=== PATIENT | female | born 1945 | race Caucasian/White ===

== ENCOUNTER → 2018-07-26 | Outpatient (CLI) | payer OTHER ==
[~2018-07-26] MED LIST: AMIO200 PO; ATOR40TA; ELIQUIS5 MG; FURO40 PO; Klor-Con 1010 MEQ PO; LEVSOD125; LOSARTAN POTASS50 MG; METO50ER; OXYB5; TRAM50 PO
== END | disposition home or self-care (01) ==
LOC: LAB SHORT 14:01 → PLD 14:01
DX: D22.61 Melanocytic nevi of right upper limb, including shoulder (principal); L57.0 Actinic keratosis
CPT/HCPCS: 88305

== ENCOUNTER → 2019-09-21 | Outpatient (CLI) | payer OTHER ==
[~2019-09-21] MED LIST changes: +GABA300 PO; +LEVSOD100 PO; -LEVSOD125; -METO50ER; +METO50ER PO; +SPIR25 PO; +TORSE20 PO
[2019-09-21 20:41] LABS: Bun/Creatinine Ratio 18.3 (12.0-20.0); Calcium, Blood 8.2 mg/dL (8.5-10.1); Creatinine, Blood 1.53 mg/dL (0.40-1.00); Potassium, Blood 4.1 mmol/L (3.5-5.5)
== END ==
LOC: LAB 18:24 → LAB SHORT 18:24
PROVIDERS: Internal Medicine
DX: I48.20 Chronic atrial fibrillation, unspecified (principal); I13.0 Hypertensive heart and chronic kidney disease with heart failure and stage 1 through stage 4 chronic kidney disease, or unspecified chronic kidney disease; N18.3 Chronic kidney disease, stage 3 (moderate); I50.33 Acute on chronic diastolic (congestive) heart failure; I50.810 Right heart failure, unspecified; I08.2 Rheumatic disorders of both aortic and tricuspid valves; G89.29 Other chronic pain
CPT/HCPCS: 80048

== ENCOUNTER → 2019-09-26 | Outpatient (CLI) | payer OTHER ==
[2019-09-26 16:02] LABS: Hematocrit 28.8 % (33.0-51.0); Hemoglobin 8.9 g/dL (11.5-16.0); Mean Corpuscular HGB 31.3 pg (26.0-34.0); Mean Corpuscular HGB Conc 30.9 g/dL (31.5-36.5); Mean Corpuscular Volume 101 fL (80-100); Mean Platelet Volume 9.8 fL (9.1-12.4); Platelet Count 277 K/mm3 (150-400); RDW Coefficient Variation 18.1 % (11.7-14.2); RDW Standard Deviation 66.9 fL (35.1-46.3); Red Blood Cell Count 2.84 M/mm3 (3.80-5.20); White Blood Cell Count 6.33 K/mm3 (4.00-11.30)
[2019-09-26 16:33] LABS: International Normalized Ratio No Calc
[2019-09-26 16:47] LABS: Prothrombin Time Results >90.0 Sec (9.7-11.5)
== END | disposition home or self-care (01) ==
LOC: LAB SHORT 14:05 → LAB 14:05
PROVIDERS: Nurse Practitioner Acute Care
DX: Z79.01 Long term (current) use of anticoagulants (principal); Z51.81 Encounter for therapeutic drug level monitoring; I07.2 Rheumatic tricuspid stenosis and insufficiency
CPT/HCPCS: 85027; 85610

== ENCOUNTER → 2019-10-05 | Outpatient (CLI) | payer OTHER ==
[2019-10-05 18:50] LABS: Hematocrit 29.2 % (33.0-51.0); Hemoglobin 9.1 g/dL (11.5-16.0); Mean Corpuscular HGB 31.2 pg (26.0-34.0); Mean Corpuscular HGB Conc 31.2 g/dL (31.5-36.5); Mean Corpuscular Volume 100 fL (80-100); Mean Platelet Volume 9.5 fL (9.1-12.4); Platelet Count 254 K/mm3 (150-400); RDW Coefficient Variation 17.5 % (11.7-14.2); RDW Standard Deviation 64.5 fL (35.1-46.3); Red Blood Cell Count 2.92 M/mm3 (3.80-5.20); White Blood Cell Count 7.34 K/mm3 (4.00-11.30)
== END | disposition home or self-care (01) ==
LOC: LAB 13:25 → LAB SHORT 13:25
PROVIDERS: Internal Medicine
DX: I48.20 Chronic atrial fibrillation, unspecified (principal); I50.23 Acute on chronic systolic (congestive) heart failure; I08.2 Rheumatic disorders of both aortic and tricuspid valves
CPT/HCPCS: 85027

== ENCOUNTER 2019-12-05 18:48 | Emergency (ER) | payer OTHER ==
[~2019-12-05] VITALS: Ht 167.6 cm; Wt 103.4 kg
[2019-12-05] MEDS ORDERED: POTCIT10 PO (19:57)
[2019-12-05] MEDS ORDERED: ATOR20 PO (19:57)
[2019-12-05] MEDS ORDERED: WARF2.5 PO (19:57)
[2019-12-05] MEDS ORDERED: TORS10 PO (19:57)
[2019-12-05 21:57] LABS: International Normalized Ratio No Calc; Prothrombin Time Results >90.0 Sec (9.7-11.5)
[2019-12-05] MEDS ORDERED: PHYTONADIONE5 MG PO (22:53)
== END 2019-12-05 21:45 | disposition home or self-care (01) ==
LOC: ER 18:48
PROVIDERS: Physician Assistant
DX: R04.0 Epistaxis (principal); I48.91 Unspecified atrial fibrillation; I10 Essential (primary) hypertension; E03.9 Hypothyroidism, unspecified; Z88.2 Allergy status to sulfonamides; Z79.01 Long term (current) use of anticoagulants; Z79.899 Other long term (current) drug therapy
CPT/HCPCS: 30901; 36415; 85610; 99283-25

== ENCOUNTER → 2020-03-25 | Outpatient (CLI) | payer OTHER ==
[~2020-03-25] MED LIST changes: +ATOR20 PO; +PHYTONADIONE5 MG PO; +POTCIT10 PO; +TORS10 PO; +WARF2.5 PO
[2020-03-25 19:40] LABS: Uric Acid, Blood 12.5 mg/dL (2.6-6.0)
[2020-03-25 19:42] LABS: Albumin, Blood 3.5 g/dL (3.4-5.0); Anion Gap 12 mmol/L (6-16); Blood Urea Nitrogen 54 mg/dL (8-24); Bun/Creatinine Ratio 20.5 (12.0-20.0); CO2, Blood 24 mmol/L (21-32); Calcium, Blood 10.2 mg/dL (8.5-10.1); Chloride, Blood 93 mmol/L (98-108); Creatinine, Blood 2.63 mg/dL (0.40-1.00); Glomerular Filtration Rate 19 (60-); Glucose, Blood 94 mg/dL (70-99); Phosphorus, Blood 5.1 mg/dL (2.5-4.9); Potassium, Blood 4.2 mmol/L (3.5-5.5); Sodium, Blood 129 mmol/L (136-145)
== END | disposition home or self-care (01) ==
LOC: PLD 18:33
PROVIDERS: Internal Medicine
DX: I50.32 Chronic diastolic (congestive) heart failure (principal); M10.9 Gout, unspecified
CPT/HCPCS: 80069; 83880; 84550

== ENCOUNTER 2022-08-12 16:09 | Inpatient (IN) | payer OTHER ==
[~2022-08-12] VITALS: Ht 167.6 cm; Wt 127.2 kg
[2022-08-12 16:50] LABS: BASOPHILS ABSOLUTE AUTO 0.07 K/mm3 (0.00-0.23); BASOPHILS PERCENT AUTO 1 % (0-2); EOSINOPHILS ABSOLUTE AUTO 0.21 K/mm3 (0.00-0.68); EOSINOPHILS PERCENT AUTO 3 % (0-6); Hematocrit 24.5 % (33.0-51.0); Hemoglobin 7.6 g/dL (11.5-16.0); IMMATURE GRAN ABSOLUTE AUTO 0.03 K/mm3 (0.00-0.10); IMMATURE GRAN PERCENT AUTO 0 % (0-1); LYMPHOCYTES ABSOLUTE AUTO 0.73 K/mm3 (0.84-5.20); LYMPHOCYTES PERCENT AUTO 10 % (21-46); MONOCYTES ABSOLUTE AUTO 0.55 K/mm3 (0.16-1.47); MONOCYTES PERCENT AUTO 8 % (4-13); Mean Corpuscular HGB 34.7 pg (26.0-34.0); Mean Corpuscular Volume 112 fL (80-100); Mean Platelet Volume 9.8 fL (9.1-12.4); NEUTROPHILS ABSOLUTE AUTO 5.46 K/mm3 (1.96-9.15); NEUTROPHILS PERCENT AUTO 77 % (41-73); NRBC ABSOLUTE 0.02 K/mm3 (0.00-0.02); NRBC Auto 0.3 /100 WBC (0.0-0.2); Platelet Count 214 K/mm3 (150-400); RDW Coefficient Variation 14.8 % (11.7-14.2); RDW Standard Deviation 59.5 fL (35.1-46.3); Red Blood Cell Count 2.19 M/mm3 (3.80-5.20); White Blood Cell Count 7.05 K/mm3 (4.00-11.30)
[2022-08-12 17:13] LABS: Albumin, Blood 3.3 g/dL (3.4-5.0); Albumin/Globulin Ratio 0.9 (0.8-1.8); Bilirubin, Total 0.5 mg/dL (0.1-1.0); Bun/Creatinine Ratio 21.8 (12.0-20.0); Calcium, Blood 9.7 mg/dL (8.5-10.1); Creatinine, Blood 2.94 mg/dL (0.40-1.00); Globulin, Blood 3.8 g/dL (2.2-4.0); Potassium, Blood 4.1 mmol/L (3.5-5.5); Total Protein, Blood 7.1 g/dL (6.4-8.2)
[2022-08-12] MEDS ORDERED: NEURONTIN300 MG PO (19:43)
[2022-08-12] MEDS ORDERED: POTCHL20ER PO (19:43)
[2022-08-12] MEDS ORDERED: ELIQUIS5 M3 PO (19:43)
[2022-08-12] MEDS ORDERED: TRAM50 PO (19:44)
[2022-08-12] MEDS ORDERED: ALLOPURINOL100 M1 PO (19:44)
[2022-08-12] MEDS ORDERED: EUTHYROX150 MC1 PO (19:44)
[2022-08-12] MEDS ORDERED: OMEP20ER PO (19:45)
[2022-08-12] MEDS ORDERED: SPIRONOLACTONE25 MG PO (19:45)
[2022-08-12] MEDS ORDERED: METOPROLOL SUCC25 MG PO (19:45)
[2022-08-12] MEDS ORDERED: IRON18 MG PO (19:46)
[2022-08-12] MEDS ORDERED: Vitamin B-Comp1 EACH PO (19:46)
[2022-08-12] MEDS ORDERED: Vitamin C100 M1 PO (19:46)
[2022-08-12] MEDS ORDERED: Calcium Carbon500 MG PO (19:47)
[2022-08-12 23:28] LABS: Hemoglobin 8.3 g/dL (11.5-16.0); Mean Corpuscular HGB Conc 30.7 g/dL (31.5-36.5); Mean Corpuscular Volume 111 fL (80-100); Mean Platelet Volume 9.9 fL (9.1-12.4); NRBC ABSOLUTE 0.02 K/mm3 (0.00-0.02); NRBC Auto 0.2 /100 WBC (0.0-0.2); Platelet Count 247 K/mm3 (150-400); RDW Coefficient Variation 14.9 % (11.7-14.2); RDW Standard Deviation 59.7 fL (35.1-46.3); Red Blood Cell Count 2.44 M/mm3 (3.80-5.20); White Blood Cell Count 8.74 K/mm3 (4.00-11.30)
[2022-08-13] VITALS (7 sets, daily range): BP systolic 90–120; BP diastolic 51–81
[2022-08-13 06:00] LABS: BASOPHILS ABSOLUTE AUTO 0.04 K/mm3 (0.00-0.23); BASOPHILS PERCENT AUTO 1 % (0-2); EOSINOPHILS ABSOLUTE AUTO 0.23 K/mm3 (0.00-0.68); EOSINOPHILS PERCENT AUTO 3 % (0-6); Hematocrit 24.5 % (33.0-51.0); Hemoglobin 7.4 g/dL (11.5-16.0); IMMATURE GRAN ABSOLUTE AUTO 0.03 K/mm3 (0.00-0.10); IMMATURE GRAN PERCENT AUTO 0 % (0-1); LYMPHOCYTES PERCENT AUTO 11 % (21-46); MONOCYTES ABSOLUTE AUTO 0.49 K/mm3 (0.16-1.47); MONOCYTES PERCENT AUTO 7 % (4-13); Mean Corpuscular HGB 33.9 pg (26.0-34.0); Mean Corpuscular HGB Conc 30.2 g/dL (31.5-36.5); Mean Corpuscular Volume 112 fL (80-100); Mean Platelet Volume 9.9 fL (9.1-12.4); NEUTROPHILS ABSOLUTE AUTO 5.51 K/mm3 (1.96-9.15); NEUTROPHILS PERCENT AUTO 78 % (41-73); NRBC ABSOLUTE 0.02 K/mm3 (0.00-0.02); NRBC Auto 0.3 /100 WBC (0.0-0.2); Platelet Count 199 K/mm3 (150-400); RDW Standard Deviation 60.5 fL (35.1-46.3); Red Blood Cell Count 2.18 M/mm3 (3.80-5.20)
[2022-08-13 06:19] LABS: Albumin, Blood 3.1 g/dL (3.4-5.0); Albumin/Globulin Ratio 0.9 (0.8-1.8); Bilirubin, Total 0.7 mg/dL (0.1-1.0); Bun/Creatinine Ratio 22.4 (12.0-20.0); Calcium, Blood 9.6 mg/dL (8.5-10.1); Creatinine, Blood 2.94 mg/dL (0.40-1.00); Globulin, Blood 3.4 g/dL (2.2-4.0); Potassium, Blood 4.2 mmol/L (3.5-5.5); Total Protein, Blood 6.5 g/dL (6.4-8.2)
--- NOTE | 2022-08-13 14:47 | NUR ---
TRANSFER PT TRANSFERED TO DAY SURGERY VIA [facility]. NPO. CONTINUE POC.
--- NOTE | 2022-08-13 14:59 | NUR ---
08/13/22 1459 Kristopher Carter History, Chart, Medications and Allergies reviewed before start of procedure.MONITOR INTACT WITH CONTINUOUS PULSE OXIMETRY, CONTINUOUS END TITAL CO2, AND INTERMITTENT BLOOD PRESSURE.EKG MONITORED DURING PROCEDURE.O2 VIA N/C INTACT THROUGHOUT SEDATION/PROCEDURE. Bite Block Placed,REMOVED AFTER PROCEDURE.See Anesthesia record/DR RICHARDS.
--- NOTE | 2022-08-13 16:15 | NUR ---
PT AWAKE.A/O. PT VSS. REPORT GIVEN TO MEDICAL FLOOR NURSE.J.L. NO ACUTE CHANGES WHILE IN THIS RN'S CARE.
--- NOTE | 2022-08-13 16:16 | NUR ---
History, Chart, Medications and Allergies reviewed before start of procedure.Lungs clear T/O to Auscultation. Patient confirms NPO status and agrees with scheduled surgery. Pre-Op teaching done. Pt verbalizes understanding.
--- NOTE | 2022-08-13 16:26 | NUR ---
POST EGD BEDSIDE REPORT RECEIVED ROM NURSE. PT AWAKE ALERT AND ABLE TO ROLL HERSELF INTO HER BED FROM THE [facility]. VSS. RESTING QUIETLY. CONTINUE POC.
--- NOTE | 2022-08-13 18:42 | NUR ---
LAB CALLED DR KNOTT TO REPORT HEMAGLOBIN 6.9. ORDER RECEIVED. CONTINUE POC.
--- NOTE | 2022-08-13 18:43 | NUR ---
POST IOP PT UP IN ROOM AD ANDREA. GAIT STEADY. FAMILY AT BEDSIDE. SHE HAS REFUSED FURTHER POST OP VS. TOELRATING CLEAR LIQUIDS. NO SWALLOW ISSUES NOTED. CONTINUE POC.
[2022-08-14 00:59] VITALS: BP 113/69
[2022-08-14 01:14] LABS: BASOPHILS ABSOLUTE AUTO 0.05 K/mm3 (0.00-0.23); BASOPHILS PERCENT AUTO 1 % (0-2); EOSINOPHILS ABSOLUTE AUTO 0.28 K/mm3 (0.00-0.68); EOSINOPHILS PERCENT AUTO 4 % (0-6); Hematocrit 26.4 % (33.0-51.0); Hemoglobin 8.3 g/dL (11.5-16.0); IMMATURE GRAN ABSOLUTE AUTO 0.03 K/mm3 (0.00-0.10); IMMATURE GRAN PERCENT AUTO 0 % (0-1); LYMPHOCYTES ABSOLUTE AUTO 0.73 K/mm3 (0.84-5.20); LYMPHOCYTES PERCENT AUTO 11 % (21-46); MONOCYTES ABSOLUTE AUTO 0.52 K/mm3 (0.16-1.47); MONOCYTES PERCENT AUTO 8 % (4-13); Mean Corpuscular HGB Conc 31.4 g/dL (31.5-36.5); Mean Corpuscular Volume 108 fL (80-100); Mean Platelet Volume 9.6 fL (9.1-12.4); NEUTROPHILS ABSOLUTE AUTO 5.25 K/mm3 (1.96-9.15); NEUTROPHILS PERCENT AUTO 77 % (41-73); NRBC ABSOLUTE 0.02 K/mm3 (0.00-0.02); NRBC Auto 0.3 /100 WBC (0.0-0.2); Platelet Count 214 K/mm3 (150-400); RDW Coefficient Variation 16.6 % (11.7-14.2); RDW Standard Deviation 64.3 fL (35.1-46.3); Red Blood Cell Count 2.44 M/mm3 (3.80-5.20); White Blood Cell Count 6.86 K/mm3 (4.00-11.30)
[2022-08-14 01:33] LABS: Albumin, Blood 3.4 g/dL (3.4-5.0); Albumin/Globulin Ratio 0.9 (0.8-1.8); Bilirubin, Total 1.7 mg/dL (0.1-1.0); Bun/Creatinine Ratio 20.7 (12.0-20.0); Calcium, Blood 9.5 mg/dL (8.5-10.1); Creatinine, Blood 2.94 mg/dL (0.40-1.00); Globulin, Blood 3.6 g/dL (2.2-4.0); Potassium, Blood 4.4 mmol/L (3.5-5.5)
[2022-08-14 07:39] VITALS: BP 102/57
[2022-08-14 15:13] VITALS: BP 121/54
--- NOTE | 2022-08-14 17:31 | NUR ---
SHIFT SUMMARY: PT A&O X4. PT VERY PLEASANT AND COOPERATIVE WITH ALL CARE. PT INDEPENDENT IN ROOM. PT LOWER LEGS EXTREMELY SWOLLEN. PT RECEIVING 6 ML LASIX BID. BLADDER SCAN THIS MORNING SHOWED 30CC IN BLADDER. PT STATES SHE IS URINATING FINE. DR. KNOTT PUT IN D/C ORDERS FOR PT TO DISCHARGE TODAY. HELD DISCHARGE DUE TO FAMILY CONCERNS FOR PT. DR. SORIANO CONSULTED TO GIVE SECOND OPINION. PROVIDER ARRIVED FOR CONSULT AROUND 1630 AND TOLD PT HE WOULD BE BACK "IN A COUPLE HOURS" (PER PT). FAMILY WOULD LIKE TO BE AROUND WHEN DR. SORIANO RETURNS. FAMILY AND PT ALSO NOT THRILLED WITH MEDICATION CHANGES. DISCHARGE PAPERS IN PT CHART. PT HGB 7.9 THIS AM. PT REMAINS ON CLEAR LIQUID DIET. BUN 61 CREAT 2.94. CALL LIGHT IN REACH. BED IN LOWEST POSITION. WILL CONTINUE TO MONITOR.
[2022-08-14 19:12] VITALS: BP 116/72
[2022-08-15] VITALS (8 sets, daily range): BP systolic 100–127; BP diastolic 49–81
--- NOTE | 2022-08-15 04:07 | NUR ---
SHIFT SUMMARY PT SITTING UP IN BED DURING BEDSIDE ROUNDS AT BEGIN OF SHIFT- PT'S DAUGHTER AND SON AT BEDSIDE AND PARTICIPATED IN REPORT- REPORT FROM JUAN THAT DR. WIGGINS WILL RETURN TONIGHT AND FILL IN THE CHILDREN OF THE CHANGES TO TREATMENT- NOTIFIED PT AND FAMILY THAT DR. WIGGINS LEFT FACILITY- FILLED PT AND FAMILY OF DIURETIC CHANGES, PT AND FAMILY ARE CONCERNED ABOUT POSSIBLE DISHARGE- CALL TO DR. WIGGINS RE: ORDER CLAFICATION- PROCRIT ORDERED IV - NOTE IN THE ORDER DESCRIPTION TO GIVE SQ- CALL PHARMACY SPOKE TO PHARMACIST AND RECOMENDATION TO CALL HIM TO CLARIFY THE ORDER- PT SLEPT T/O NIGHT - PT TOLERATED WELL, BED LOW POSITION, CALL LIGHT WTIHIN REACH
[2022-08-15 07:11] LABS: Albumin, Blood 3.3 g/dL (3.4-5.0); Anion Gap 11 mmol/L (6-16); Blood Urea Nitrogen 51 mg/dL (8-24); Bun/Creatinine Ratio 19.3 (12.0-20.0); CO2, Blood 25 mmol/L (21-32); Calcium, Blood 9.2 mg/dL (8.5-10.1); Chloride, Blood 102 mmol/L (98-108); Creatinine, Blood 2.64 mg/dL (0.40-1.00); Glomerular Filtration Rate 18 (60-); Glucose, Blood 109 mg/dL (70-99); Phosphorus, Blood 3.7 mg/dL (2.5-4.9); Potassium, Blood 3.8 mmol/L (3.5-5.5); Sodium, Blood 138 mmol/L (136-145)
--- NOTE | 2022-08-15 19:24 | NUR ---
PT QUITE PLEASANT TODAY. LUNGS CLEAR, RESP EASY, ON R/A. H/R REG, NO MURMUR NOTED. NO TELE. VSS STABLE, BUT SOME SOFT. DISCUSSED WITH DR KNOTT THIS AM. HE HAD ME HOLD ALDACTONE THIS AM. PT HAD MULT FAMILY IN TO SEE TODAY. PT STATES NO DARK TARRY OR BLOODY STOOL NOTED TODAY. BED IN LOW POSITIOIN, CALL LITE IN REACH. CALLS APPROP
[2022-08-16 04:02] VITALS: BP 106/64
--- NOTE | 2022-08-16 05:27 | NUR ---
SHIFT SUMMERY. pT RESTED VERY WELL THIS NIGHT. PT STATED SHE HAD BEEN SLEEPDING VERY DEEPLY AND AWOKE DUE TO NEEDING TO VOID. PT SAID SHE FELT VERY REFRESHED AND WAS THINKING ABOUT POSS DC TO HOME BEING OK, EARLYER PT DID NOT WANT TO DC TO HOME BUT FOUND OUT DAUGHTER WOULD BE HERE TODAY. CALL LIGHT IN REACH PT UP AT ANDREA, STEADY ON FEET.
[2022-08-16 05:59] LABS: BASOPHILS ABSOLUTE AUTO 0.04 K/mm3 (0.00-0.23); BASOPHILS PERCENT AUTO 1 % (0-2); EOSINOPHILS ABSOLUTE AUTO 0.21 K/mm3 (0.00-0.68); EOSINOPHILS PERCENT AUTO 3 % (0-6); Hematocrit 26.2 % (33.0-51.0); Hemoglobin 8.2 g/dL (11.5-16.0); IMMATURE GRAN ABSOLUTE AUTO 0.04 K/mm3 (0.00-0.10); IMMATURE GRAN PERCENT AUTO 1 % (0-1); LYMPHOCYTES ABSOLUTE AUTO 0.83 K/mm3 (0.84-5.20); LYMPHOCYTES PERCENT AUTO 11 % (21-46); MONOCYTES ABSOLUTE AUTO 0.68 K/mm3 (0.16-1.47); MONOCYTES PERCENT AUTO 9 % (4-13); Mean Corpuscular HGB 34.3 pg (26.0-34.0); Mean Corpuscular HGB Conc 31.3 g/dL (31.5-36.5); Mean Corpuscular Volume 110 fL (80-100); Mean Platelet Volume 9.8 fL (9.1-12.4); NEUTROPHILS ABSOLUTE AUTO 5.53 K/mm3 (1.96-9.15); NEUTROPHILS PERCENT AUTO 76 % (41-73); Platelet Count 187 K/mm3 (150-400); RDW Standard Deviation 64.1 fL (35.1-46.3); Red Blood Cell Count 2.39 M/mm3 (3.80-5.20); White Blood Cell Count 7.33 K/mm3 (4.00-11.30)
[2022-08-16 06:18] LABS: Bun/Creatinine Ratio 17.4 (12.0-20.0); Calcium, Blood 9.3 mg/dL (8.5-10.1); Creatinine, Blood 2.64 mg/dL (0.40-1.00); Percent Saturation 4.9 % (15.0-50.0); Potassium, Blood 3.7 mmol/L (3.5-5.5)
[2022-08-16 07:55] VITALS: BP 97/67
[2022-08-16 08:59] VITALS: BP 115/56
[2022-08-16 09:01] VITALS: BP 108/59
[2022-08-16 17:56] VITALS: BP 120/70
--- NOTE | 2022-08-16 18:59 | NUR ---
SHIFT SUMMARY PT. INDEPENDENT IN ROOM. PLEASANT AND COMPLIANT WITH CARE. STRICT I&O'S PER DOCTOR. FAMILY IN AT BEDSIDE MOST OF AFTERNOON. NO ACUTE CHANGE.
--- NOTE | 2022-08-16 19:34 | NUR ---
AGREE WITH RN NOTES.
--- NOTE | 2022-08-16 19:34 | NUR ---
PT PLEASANT TODAY. SHE STATES MIGHT BE FEELING LIKE GETTING A COLD. NO OTHER ACUTE CHANGES TODAY
[2022-08-17 05:31] VITALS: BP 112/66
[2022-08-17 06:30] LABS: BASOPHILS ABSOLUTE AUTO 0.04 K/mm3 (0.00-0.23); BASOPHILS PERCENT AUTO 0 % (0-2); EOSINOPHILS PERCENT AUTO 2 % (0-6); Hematocrit 27.9 % (33.0-51.0); Hemoglobin 8.7 g/dL (11.5-16.0); IMMATURE GRAN ABSOLUTE AUTO 0.06 K/mm3 (0.00-0.10); IMMATURE GRAN PERCENT AUTO 1 % (0-1); LYMPHOCYTES ABSOLUTE AUTO 0.82 K/mm3 (0.84-5.20); LYMPHOCYTES PERCENT AUTO 9 % (21-46); MONOCYTES ABSOLUTE AUTO 0.86 K/mm3 (0.16-1.47); MONOCYTES PERCENT AUTO 9 % (4-13); Mean Corpuscular HGB 33.9 pg (26.0-34.0); Mean Corpuscular HGB Conc 31.2 g/dL (31.5-36.5); Mean Corpuscular Volume 109 fL (80-100); NEUTROPHILS ABSOLUTE AUTO 7.51 K/mm3 (1.96-9.15); NEUTROPHILS PERCENT AUTO 79 % (41-73); NRBC ABSOLUTE 0.02 K/mm3 (0.00-0.02); NRBC Auto 0.2 /100 WBC (0.0-0.2); Platelet Count 210 K/mm3 (150-400); RDW Coefficient Variation 15.4 % (11.7-14.2); RDW Standard Deviation 61.1 fL (35.1-46.3); Red Blood Cell Count 2.57 M/mm3 (3.80-5.20); White Blood Cell Count 9.49 K/mm3 (4.00-11.30)
--- NOTE | 2022-08-17 06:37 | NUR ---
SHIFT SUMMARY PT SITTING UP IN BED DURING BEDSIDE REPORT, PT DENIES PAIN, SPOKE WITH PT RE: NOT HAVING A BM FOR 5 DAYS, PT DENIED ABDOMEN PAIN- PT CONCERNED AND REQUESTED BOWEL MEDICATION, CALL TO DR. PAYNE - ORDER FOR MIRALAX X 1- PT DRANK WITHOUT PROBLEMS, PT SLEPT T/O NIGHT WITHOUT COMPLAINTS, PT TOOK MORNING PROTONIX AND SAT UP TO SIDE OF BED READING, STRICT I/O RECORDED, BED LOW POSITION, CALL LIGHT WITHIN REACH
[2022-08-17 06:50] LABS: Bun/Creatinine Ratio 17.9 (12.0-20.0); Calcium, Blood 9.8 mg/dL (8.5-10.1); Creatinine, Blood 2.62 mg/dL (0.40-1.00)
[2022-08-17 07:31] VITALS: BP 113/51
--- NOTE | 2022-08-17 13:07 | NUR ---
PATIENT HAVING INCREASED SHORTNESS OF BREATH AND WHEEZING. DR EVANS NOTIFIED AND CHEST X-RAY ORDERED. SATS REMAIN >90% ON RA.
[2022-08-17 14:48] VITALS: BP 111/58
--- NOTE | 2022-08-17 17:34 | NUR ---
END OF SHIFT SUMMARY PT A/O X4, EDGAR, AND COOPERATIVE WITH CARE. PT HAD AN EPISODE OF INCREASED SOB AND COUGHING. SATS MONITORED AND >92%. NOTIFIED CORNELL WHO ORDERED CHEST XRAY. PT HGB INCREASED TO 8.7, GAVE IV IRON DURING SHIFT. PT COMPLAINED OF NOT HAVING A BOWEL MOVEMENT. GAVE PRUNE JUICE WHICH HELPED PT PRODUCE A BOWEL MOVEMENT. STRICT I&O'S RECORDED, ROOM AIR, NO TELE. USES CALL LIGHT APPROPRIATLEY AND BED KEPT IN LOWEST POSITION. DAUGHTER AT BEDSIDE TODAY.
[2022-08-17 19:41] VITALS: BP 73/50
[2022-08-17 21:31] VITALS: BP 109/62
[2022-08-18 04:46] VITALS: BP 121/76
--- NOTE | 2022-08-18 05:27 | NUR ---
SHIFT SUMMARY PT SITTING UP TO SIDE OF BED DURING BEDSIDE REPORT, DAUGHTER IN ROOM- PT TOOK SCHEDULED GABAPENTIN AT HS, PT REPORTED FEELING IF SHE IS STARTING TO GET A COLD, PT LUNGS SOUNDS COARSE, SATS WNL- PT AMBULATED TO BATHROOM WITHOUT PROBLEMS, PT ON STRICT I/O- [address] MOSES - PT REQUESTED COUGH SYRUP AND DROP FOR COUGH AND SORE THROAT BED LOW POSITION, CALL LIGHT WITHIN REACH
[2022-08-18 05:37] LABS: Hematocrit 28.1 % (33.0-51.0); Hemoglobin 9.1 g/dL (11.5-16.0)
[2022-08-18 06:09] LABS: Bun/Creatinine Ratio 17.6 (12.0-20.0); Calcium, Blood 9.1 mg/dL (8.5-10.1); Creatinine, Blood 2.73 mg/dL (0.40-1.00)
[2022-08-18 07:23] VITALS: BP 123/76
[2022-08-18 14:44] VITALS: BP 121/74
[2022-08-18 15:07] LABS: A/G RATIO 1.2 (0.7-1.7); ALBUMIN 3.3 g/dL (2.9-4.4); ALPHA-1-GLOBULIN 0.3 g/dL (0.0-0.4); ALPHA-2-GLOBULIN 0.7 g/dL (0.4-1.0); GAMMA GLOBULIN 0.8 g/dL (0.4-1.8); GLOBULIN, TOTAL 2.8 g/dL (2.2-3.9); M-SPIKE Not Observed g/dL (Not Observed); PROTEIN, TOTAL, SERUM 6.1 g/dL (6.0-8.5)
[2022-08-18] MEDS ORDERED: PANT40 PO (16:08)
[2022-08-18] MEDS ORDERED: VISBIOME 112.51 EACH PO (16:08)
[2022-08-18] MEDS ORDERED: AMOCLA500 PO (16:09)
--- NOTE | 2022-08-18 16:46 | NUR ---
END OF SHIFT SUMMARY PT A/O X4, CALM AND COOPERATIVE WITH CARE. PT CALM AND COOPERATIVE WITH CARE, GETS INCREASED ANXIETY WHEN COUGHING. TREATED COUGH PER MAR WITH ROBITUSSIN.DR YADAV ORDERED ABX TO BE STARTED TONIGHT. PT WAS TO BE DISCHARGED BUT FAMILY DID NOT THINK WAS A GOOD IDEA PT LIVES ALONE. PT APPEALED DISCHARGE. DR YAADV REQUESTED PT BRING IN CPAP FROM HOME FOR USE. PT HAS NOT BEEN WEARING CPAP WHILE IN THE HOSPITAL BECAUSE SHE DOES NOT LIKE THE HOSPITALS AND DID NOT HAVE HER OWN. STRICT I&O RECORDED. BED IN LOWEST POSITION, PT USES CALL LIGHT WHEN NEEDED.
[2022-08-18 19:59] VITALS: BP 101/68
[2022-08-19 04:57] VITALS: BP 108/61
[2022-08-19 07:17] VITALS: BP 108/65
[2022-08-19 15:48] VITALS: BP 107/71
--- NOTE | 2022-08-19 16:52 | NUR ---
SHIFT SUMMARY PATIENT DENIES PAIN, NAUSEA, AND SHORTNESS OF BREATH. PATIENT A&O X4. PATIENT IS PLEASANT AND COOPERATIVE WITH CARE. PATIENT IS IND IN THE ROOM. SEE RELISH BLENDER NOTES FOR UPDATES. NO IV ACCESS. PATIENT EATING AND DRINKING WELL. PATIENT HAD FAMILY VISIT THROUGHOUT SHIFT.
[2022-08-19 19:23] VITALS: BP 94/51
[2022-08-20 02:35] VITALS: BP 117/82
--- NOTE | 2022-08-20 06:37 | NUR ---
NO EVENTS DURING SHIFT. PT AO, VSS, PLEASANT, CPAP IN PLACE FOR ENTIRE SHIFT. PLAN IS TO DC HOME TODAY. NO PRN MEDS GIVEN. NO SIGNIFICANT CHANGES NOTED.
[2022-08-20 07:12] VITALS: BP 121/83
[2022-08-20] MEDS ORDERED: GUAI600T33 PO (11:07)
[2022-08-20] MEDS ORDERED: METO5 PO (11:09)
--- NOTE | 2022-08-20 15:35 | NUR ---
PT DISCHARGE AT 1210 WITH DAUGHTER TO TRANSPORT. ALL PERSONAL BELINGINGS ARE WITH PT. PACKET WAS REVIEWED AND SENT WITH PT. NO DISTRESS NOTED. PT AOX4 AND COOPERATIVE OF ALL CARE THOUGHOUT SHIFT.
== END 2022-08-20 12:21 | disposition home or self-care (01) | DRG 377 ==
LOC: ER 16:09 → MEDS 16:10 → ENPENDDIS 08-14 09:21 → MEDS 08-16 15:53
PROVIDERS: Family Medicine; Hospitalist; Internal Medicine; Physician Assistant; Student in an Organized Health Care Education/Training Program; ADMIT Student in an Organized Health Care Education/Training Program
PROC: 0D568ZZ Destruction of Stomach, Via Natural or Artificial Opening Endoscopic (ICD-10-PCS; 2022-08-13)
PROC: 30233N1 Transfusion of Nonautologous Red Blood Cells into Peripheral Vein, Percutaneous Approach (ICD-10-PCS; 2022-08-13)
PROC: 0W3P8ZZ Control Bleeding in Gastrointestinal Tract, Via Natural or Artificial Opening Endoscopic (ICD-10-PCS; principal; 2022-08-13 15:30)
PROC: 5A09357 Assistance with Respiratory Ventilation, Less than 24 Consecutive Hours, Continuous Positive Airway Pressure (ICD-10-PCS; 2022-08-16)
DX: K31.811 Angiodysplasia of stomach and duodenum with bleeding (principal); I50.33 Acute on chronic diastolic (congestive) heart failure; J18.9 Pneumonia, unspecified organism; D62 Acute posthemorrhagic anemia; E87.1 Hypo-osmolality and hyponatremia; J98.11 Atelectasis; I48.20 Chronic atrial fibrillation, unspecified; N18.4 Chronic kidney disease, stage 4 (severe); Z68.42 Body mass index [BMI] 45.0-49.9, adult; I13.0 Hypertensive heart and chronic kidney disease with heart failure and stage 1 through stage 4 chronic kidney disease, or unspecified chronic kidney disease; N17.9 Acute kidney failure, unspecified; D63.1 Anemia in chronic kidney disease; I07.1 Rheumatic tricuspid insufficiency; G47.33 Obstructive sleep apnea (adult) (pediatric); R79.89 Other specified abnormal findings of blood chemistry; G89.4 Chronic pain syndrome; M10.9 Gout, unspecified; D50.9 Iron deficiency anemia, unspecified; Q27.33 Arteriovenous malformation of digestive system vessel; E87.6 Hypokalemia; E03.9 Hypothyroidism, unspecified; R63.5 Abnormal weight gain; F41.9 Anxiety disorder, unspecified; K29.41 Chronic atrophic gastritis with bleeding; I27.20 Pulmonary hypertension, unspecified; Z88.2 Allergy status to sulfonamides; Z79.02 Long term (current) use of antithrombotics/antiplatelets; Z99.89 Dependence on other enabling machines and devices; Z79.899 Other long term (current) drug therapy; Z79.01 Long term (current) use of anticoagulants; Z95.2 Presence of prosthetic heart valve; Z79.891 Long term (current) use of opiate analgesic; Z98.890 Other specified postprocedural states; Z90.710 Acquired absence of both cervix and uterus
CPT/HCPCS: 36415; 71045; 71046; 80048; 80053; 80069; 82272; 82533; 82607; 82728; 82746; 83540; 83550; 83880; 84145; 84165; 84484; 85014; 85018; 85025; 85027; 86850; 86900; 86901; 86923; 93005; 93010; 93306; 94660; 94762; 96372; 96374; 96375; 96376; 97161; 97530; 99285-25; A9270; C9113; G0378; J1940; J2001; J2370; J2405; J2704; J2916; J7030; P9016; Q5106

== ENCOUNTER 2022-09-02 03:30 | Day surgery (SDC) | payer OTHER ==
[~2022-09-02 03:30] MED LIST changes: +ALLOPURINOL100 M1 PO; +AMOCLA500 PO; +Calcium Carbon500 MG PO; +ELIQUIS5 M3 PO; +EUTHYROX150 MC1 PO; +GUAI600T33 PO; +IRON18 MG PO; +METO5 PO; +METOPROLOL SUCC25 MG PO; +NEURONTIN300 MG PO; +OMEP20ER PO; +PANT40 PO; +POTCHL20ER PO; +SPIRONOLACTONE25 MG PO; +VISBIOME 112.51 EACH PO; +Vitamin B-Comp1 EACH PO; +Vitamin C100 M1 PO
[2022-09-02 10:15] VITALS: BP 110/58
== END 2022-09-02 11:27 | disposition home or self-care (01) ==
LOC: ATC 03:30
DX: D50.9 Iron deficiency anemia, unspecified (principal); K92.1 Melena; I12.9 Hypertensive chronic kidney disease with stage 1 through stage 4 chronic kidney disease, or unspecified chronic kidney disease; N18.4 Chronic kidney disease, stage 4 (severe); E03.9 Hypothyroidism, unspecified; I48.91 Unspecified atrial fibrillation; Z95.2 Presence of prosthetic heart valve; Z79.01 Long term (current) use of anticoagulants; Z88.2 Allergy status to sulfonamides; Z79.890 Hormone replacement therapy; Z79.899 Other long term (current) drug therapy
CPT/HCPCS: 96365; J2916

== ENCOUNTER 2022-09-03 03:17 | Day surgery (SDC) | payer OTHER ==
[2022-09-03 09:57] VITALS: BP 115/74
--- NOTE | 2022-09-03 11:21 | NUR ---
AT 1106 AFTER APPT, PT WENT TO USE THE BATHROOM PRIOR TO LEAVING THE UNIT. PT RETURNED TO ROOM 2 SHE WAS BLEEDING THROUGH HER 2X2'S AND COBAN WHERE HER IV WAS D/C'D. PRESSURE WAS APPLIED TO THE AREA, ARM WAS ELEVATED ABOVE HEART LEVEL AND AFTER APPROXIMATELY 2-3 MINUTES THE BLEEDING SLOWED TO A STOP. NEW 2X2'S WITH TEGADERM DRESSING APPLIED FOLLOWED BY MORE 2X2'S AND COBAN. PT INSTRUCTED TO LEAVE DRESSING IN PLACE FOR 30 MINUTES AND TO WATCH FOR ANY MORE BLEEDING. IF BLEEDING OCCURS PT TO APPLY PRESSURE, ELEVATE THE ARM, AND RETURN TO THE CLINIC. PT VERBALIZED UNDERSTANDING
== END 2022-09-03 11:20 | disposition home or self-care (01) ==
LOC: ATC 03:17
DX: D50.9 Iron deficiency anemia, unspecified (principal); I48.91 Unspecified atrial fibrillation; I12.9 Hypertensive chronic kidney disease with stage 1 through stage 4 chronic kidney disease, or unspecified chronic kidney disease; N18.4 Chronic kidney disease, stage 4 (severe); E03.9 Hypothyroidism, unspecified; Z88.2 Allergy status to sulfonamides; Z79.01 Long term (current) use of anticoagulants; Z79.899 Other long term (current) drug therapy
CPT/HCPCS: 96365; J2916

== ENCOUNTER → 2022-10-26 | Outpatient (CLI) | payer OTHER ==
[2022-10-26 10:24] LABS: Source, Urine Clean Catch
[2022-10-26 13:15] LABS: Appearance, Urine Clear (Clear); Bilirubin, Urine Neg (Neg); Blood, Urine Neg (Neg); Color, Urine Yellow (P-Yellow); Glucose Qualitative, Urine Neg (Neg); Ketones, Urine Neg (Neg); Leukocyte Esterase, Urine Neg (Neg); Nitrite, Urine Neg (Neg); Protein, Urine Neg (Neg); Urobilinogen, Urine NORM (Normal)
== END ==
LOC: LAB SHORT 08:00 → LAB 08:00
PROVIDERS: Hospitalist
DX: N18.5 Chronic kidney disease, stage 5 (principal)
CPT/HCPCS: 81003

== ENCOUNTER → 2023-03-17 | Outpatient (CLI) | payer OTHER ==
[2023-03-17 19:06] LABS: Albumin, Blood 3.5 g/dL (3.4-5.0); Anion Gap 8 mmol/L (6-16); Blood Urea Nitrogen 63 mg/dL (8-24); Bun/Creatinine Ratio 22.8 (12.0-20.0); CO2, Blood 24 mmol/L (21-32); Calcium, Blood 8.9 mg/dL (8.5-10.1); Chloride, Blood 101 mmol/L (98-108); Creatinine, Blood 2.76 mg/dL (0.40-1.00); Glomerular Filtration Rate 17 (60-); Glucose, Blood 99 mg/dL (70-99); Phosphorus, Blood 4.3 mg/dL (2.5-4.9); Potassium, Blood 4.4 mmol/L (3.5-5.5); Sodium, Blood 133 mmol/L (136-145)
== END ==
LOC: LAB SHORT 17:19 → LAB 17:19
PROVIDERS: Internal Medicine
DX: N18.5 Chronic kidney disease, stage 5 (principal)
CPT/HCPCS: 80069

== ENCOUNTER 2023-05-13 16:52 | Inpatient (IN) | payer OTHER ==
[~2023-05-13] VITALS: Ht 165.1 cm; Wt 121.1 kg
[2023-05-13 17:40] LABS: BASOPHILS ABSOLUTE AUTO 0.04 K/mm3 (0.00-0.23); BASOPHILS PERCENT AUTO 1 % (0-2); EOSINOPHILS ABSOLUTE AUTO 0.05 K/mm3 (0.00-0.68); EOSINOPHILS PERCENT AUTO 1 % (0-6); Hematocrit 18.4 % (33.0-51.0); IMMATURE GRAN ABSOLUTE AUTO 0.08 K/mm3 (0.00-0.10); IMMATURE GRAN PERCENT AUTO 1 % (0-1); LYMPHOCYTES PERCENT AUTO 11 % (21-46); MONOCYTES PERCENT AUTO 9 % (4-13); Mean Corpuscular HGB 35.4 pg (26.0-34.0); Mean Corpuscular HGB Conc 30.4 g/dL (31.5-36.5); Mean Corpuscular Volume 117 fL (80-100); Mean Platelet Volume 10.2 fL (9.1-12.4); NEUTROPHILS ABSOLUTE AUTO 5.78 K/mm3 (1.96-9.15); NEUTROPHILS PERCENT AUTO 78 % (41-73); NRBC ABSOLUTE 0.04 K/mm3 (0.00-0.02); NRBC Auto 0.5 /100 WBC (0.0-0.2); Platelet Count 215 K/mm3 (150-400); RDW Coefficient Variation 16.7 % (11.7-14.2); RDW Standard Deviation 69.3 fL (35.1-46.3); Red Blood Cell Count 1.58 M/mm3 (3.80-5.20); White Blood Cell Count 7.45 K/mm3 (4.00-11.30)
[2023-05-13 17:46] LABS: Hemoglobin 5.6 g/dL (11.5-16.0)
[2023-05-13 18:00] LABS: Albumin, Blood 3.2 g/dL (3.4-5.0); Bun/Creatinine Ratio 23.8 (12.0-20.0); Calcium, Blood 9.2 mg/dL (8.5-10.1); Creatinine, Blood 4.74 mg/dL (0.40-1.00); Globulin, Blood 3.2 g/dL (2.2-4.0); Total Protein, Blood 6.4 g/dL (6.4-8.2)
[2023-05-13 21:03] LABS: Influenza A, PCR NEGATIVE (NEGATIVE); Influenza B, PCR NEGATIVE (NEGATIVE); Resp Syncytial Virus, PCR NEGATIVE (NEGATIVE); SARS-Cov-2 (COVID-19) PCR, MMC NEGATIVE (NEGATIVE)
[2023-05-13] MEDS ORDERED: Pantoprazole Sodium 40 MG Injection IV ONE (22:40)
[2023-05-13] MEDS ORDERED: NS 1,000 ML IV ONE (22:43)
[2023-05-13] MEDS ORDERED: FLU VACC QS2023-24(6MOS UP)/PF 60 MCG/0.5 ML SYRINGE IM ONE (23:10)
[2023-05-13] MEDS ORDERED: Ondansetron HCl 2 MG / ML 2ML Vial IV PRN (23:25)
[2023-05-13] MEDS ORDERED: Metoprolol Tartrate 1 MG/ML 5 ML VIAL IV PRN (23:25)
[2023-05-14] VITALS (45 sets, daily range): BP systolic 87–128; BP diastolic 44–104
[2023-05-14] MEDS ORDERED: Bumetanide 0.25 MG/ML 4ML ViaL IV SCH
[2023-05-14] MEDS ORDERED: NS 20 ML IV SCH (00:35)
[2023-05-14] MEDS ORDERED: NS 1,000 ML IV SCH (00:35)
[2023-05-14 01:22] LABS: International Normalized Ratio 2.07; Prothrombin Time Results 20.9 Sec (9.7-11.5)
[2023-05-14] MEDS ORDERED: C COMPLEX1000 M1 PO (03:15)
[2023-05-14] MEDS ORDERED: FAMO20 PO (03:16)
[2023-05-14] MEDS ORDERED: FERSU300 PO (03:16)
[2023-05-14] MEDS ORDERED: MERIBIN5 MG PO (03:17)
[2023-05-14] MEDS ORDERED: CIPR250 PO (03:18)
[2023-05-14] MEDS ORDERED: Pantoprazole Sodium 40 MG Injection IV SCH ×2 (06:00)
--- NOTE | 2023-05-14 06:17 | NUR ---
SHIFT SUMMARY PT TOLERATED CPAP FOR ABOUT 2 HOURS OVERNIGHT. 2ND UNIT OF BLOOD FINISHED AT 0555, BUMEX GIVEN IN BETWEEN UNITS OF BLOOD PER MD ORDER. PT REMAINS ON ROOM AIR WHEN NOT ON CPAP. PUREWICK IN PLACE AND FUNCTIONING EFFECTIVELY.
[2023-05-14 06:56] LABS: Hematocrit 21.2 % (33.0-51.0); Hemoglobin 6.6 g/dL (11.5-16.0); Mean Corpuscular HGB 32.5 pg (26.0-34.0); Mean Corpuscular HGB Conc 31.1 g/dL (31.5-36.5); Mean Platelet Volume 9.8 fL (9.1-12.4); NRBC ABSOLUTE 0.03 K/mm3 (0.00-0.02); NRBC Auto 0.5 /100 WBC (0.0-0.2); Platelet Count 167 K/mm3 (150-400); RDW Coefficient Variation 23.4 % (11.7-14.2); RDW Standard Deviation 86.8 fL (35.1-46.3); Red Blood Cell Count 2.03 M/mm3 (3.80-5.20); White Blood Cell Count 5.92 K/mm3 (4.00-11.30)
[2023-05-14 06:59] LABS: Mean Corpuscular Volume 104 fL (80-100)
[2023-05-14 07:12] LABS: Bun/Creatinine Ratio 24.7 (12.0-20.0); Creatinine, Blood 4.54 mg/dL (0.40-1.00); Potassium, Blood 4.6 mmol/L (3.5-5.5)
[2023-05-14] MEDS ORDERED: NS 250 ML IV PRN (07:40)
[2023-05-14] MEDS ORDERED: Levothyroxine Sodium 100 MCG Vial IV SCH ×2 (09:00)
[2023-05-14 15:12] LABS: Hematocrit 25.2 % (33.0-51.0); Hemoglobin 7.9 g/dL (11.5-16.0)
--- NOTE | 2023-05-14 18:12 | NUR ---
SUMMARY PT A/O X4, SOMETIMES FORGETFUL TO PLAN OF CARE. OOB TO CHAIR PART OF THE DAY, 1 PERSON STANDBY ASSIST. RECEIVED ONE UNIT OR PRBC'S TODAY, 1500 H&H STABLE, NO SIGNS OF BLEEDING THIS SHIFT. BP STABLE. USING CALL LIGHT APPROPRIATELY, AND ABLE TO MAKE PHONE CALLS WITH CELL PHONE. DR. VILLALOBOS BY TO SEE PT THIS EVENING. PLANNING ON EGD AND COLONOSCOPY ON WEDNESDAY MORNING. TOLERATING DIET WITHOUT ISSUE. NO SIGN OF DISTRESS.
--- NOTE | 2023-05-14 22:48 | NUR ---
SHIFT ASSESSMENT PT REMAINS ON ROOM AIR AT CHANGE OF SHIFT. PT ALERT AND ORIENTED, DAUGHTER VISITING AT THIS TIME. PT BOOSTED IN BED, OFFER TO SIT IN CHAIR DECLINED. PT HAS NO GTTS AT THIS TIME, [address] PT MOOD POSITIVE AND TALKATIVE.
[2023-05-15] VITALS (16 sets, daily range): BP systolic 77–112; BP diastolic 44–87
[2023-05-15 03:48] LABS: BASOPHILS ABSOLUTE AUTO 0.04 K/mm3 (0.00-0.23); BASOPHILS PERCENT AUTO 1 % (0-2); EOSINOPHILS ABSOLUTE AUTO 0.14 K/mm3 (0.00-0.68); EOSINOPHILS PERCENT AUTO 2 % (0-6); Hematocrit 23.8 % (33.0-51.0); Hemoglobin 7.3 g/dL (11.5-16.0); IMMATURE GRAN ABSOLUTE AUTO 0.05 K/mm3 (0.00-0.10); IMMATURE GRAN PERCENT AUTO 1 % (0-1); LYMPHOCYTES ABSOLUTE AUTO 0.77 K/mm3 (0.84-5.20); LYMPHOCYTES PERCENT AUTO 12 % (21-46); MONOCYTES ABSOLUTE AUTO 0.61 K/mm3 (0.16-1.47); MONOCYTES PERCENT AUTO 10 % (4-13); Mean Corpuscular HGB 31.9 pg (26.0-34.0); Mean Corpuscular HGB Conc 30.7 g/dL (31.5-36.5); Mean Corpuscular Volume 104 fL (80-100); Mean Platelet Volume 10.1 fL (9.1-12.4); NEUTROPHILS ABSOLUTE AUTO 4.61 K/mm3 (1.96-9.15); NEUTROPHILS PERCENT AUTO 74 % (41-73); Platelet Count 161 K/mm3 (150-400); RDW Coefficient Variation 24.1 % (11.7-14.2); RDW Standard Deviation 90.2 fL (35.1-46.3); Red Blood Cell Count 2.29 M/mm3 (3.80-5.20); White Blood Cell Count 6.22 K/mm3 (4.00-11.30)
[2023-05-15 04:12] LABS: Anion Gap 7 mmol/L (6-16); Blood Urea Nitrogen 113 mg/dL (8-24); Bun/Creatinine Ratio 25.1 (12.0-20.0); CO2, Blood 24 mmol/L (21-32); Calcium, Blood 8.9 mg/dL (8.5-10.1); Chloride, Blood 103 mmol/L (98-108); Glomerular Filtration Rate 9 (60-); Glucose, Blood 110 mg/dL (70-99); Phosphorus, Blood 5.3 mg/dL (2.5-4.9); Sodium, Blood 134 mmol/L (136-145)
--- NOTE | 2023-05-15 07:48 | NUR ---
SHIFT SUMMARY PT DAUGHTER VISITING AT SHIFT CHANGE. PT ALERT AND ORIENTED, PLEASANT AND CALM DEMEANOR. PT DAUGHTER LEFT AROUND 2130. PT SLEEPING FROM ABOUT 2230 TO 2315, PT THEN REQUESTED TO GET UP TO SIT IN CHAIR CLAIMING THAT PT DOES NOT SLEEP UNTIL 0600 AT HOME NORMALLY. PT REMAINED IN CHAIR UNTIL AROUND 0230 BEFORE RETURNING TO BED. PT ASLEEP UNTIL 0530 WHEN IT CAME TO RN ATTENTION THAT PT WAS NO LONGER ON MONITOR. RN IMMEDIATELY CHECK ON PT TO SEE PT HAD GOTTEN OUT OF BED, REMOVED GOWN, AND WAS STANDING NEAR DOOR TO ROOM SEEMINGLY ATTEMPTING TO LEAVE ROOM. PT STATED NEEDING TO USE THE RESTROOM AND COULD NOT FIND IT. PT UNABLE TO ANSWER ORIENTATION QUESTIONS AT THIS TIME. PT MADE STATEMENTS INCLUDING "IT LOOKS LIKE A HOSPITAL, BUT THAT IS NOT WHERE I AM." PT ALSO MADE STATEMENTS ALLUDING TO CONCERNS OF BEING "SHOT" SUCH "IT IS A GOOD THING YOU WEREN'T THE POLICE OR ELSE YOU MAY HAVE SHOT ME" AND "IT IS A GOOD THING I DIDN'T HAVE A GUN I MAY HAVE ACCIDENTALLY SHOT YOU." PT REASSURED THAT PT IS IN THE HOSPITAL AND IS SAFE AND THAT NO ONE HERE HAS A GUN OR WISHES TO HARM PATIENT. PT GIVEN A LINEN AND GOWN CHANGE. PUREWICK AND TUBING/CANISTER CHANGED OUT AT THIS TIME. PT RETURNED TO BED AT THIS POINT, BUT REMAINS UNABLE TO CORRECTLY ANSWER ORIENTATION QUESTIONS AFTER MULTIPLE ATTEMPTS BY THIS RN AND FELLOW RN AMILCAR TO ORIENT PATIENT TO SURROUNDINGS AND SITUATION. PT REMAINS IN BED AND IS ASLEEP AT CHANGE OF SHIFT.
[2023-05-15] MEDS ORDERED: UNISOM PM PAIN1 EACH PO (12:04)
[2023-05-15] MEDS ORDERED: Peg/Electrolytes 4,000 ML BTL PO SCH (17:00)
[2023-05-15 17:04] LABS: Hemoglobin 7.9 g/dL (11.5-16.0)
--- NOTE | 2023-05-15 18:31 | NUR ---
SUMMARY PT A/O TO PERSON, PLACE, AND FAMILY. SOMETIMES HAS CONFUSED CONVERSATION BUT REORIENTS EASILY. NO SIGN OF BLEEDING TODAY. OOB TO CHAIR SEVERAL TIMES WITHOUT ISSUE. PT STARTED GOLYTELY BOWEL PREP THIS EVENING. NO SIGN OF DISTESS. USING CALL LIGHT APPROPRIATELY.
--- NOTE | 2023-05-15 19:40 | NUR ---
ASSUMPTION OF CARE RECEIVED INTO CARE, REPORT GIVEN BY DAY RN. PT AWAKE LYING IN BED. ALERT AND OREINTED. ON TELE IN AFIB. DRINKING BOWEL CARE. PUREWICK IN PLACE. NO VOICED CONERNS AT THIS TIME. CALL HERNANDES IN REACH. SEE SHIFT ASSESSMENT FOR FURTHER DETAILS.
[2023-05-15] MEDS ORDERED: Peg/Electrolytes 4,000 ML BTL PO ONE (22:15)
--- NOTE | 2023-05-15 22:15 | NUR ---
GI PT FINISHED FULL GALLON BOWEL PREP AT 2034. BOWEL MOVEMENTS CONTINUE TO BE DARK BROWN LIQUID. DR VILLALOBOS MADE AWARE. SEE NEW ORDERS.
--- NOTE | 2023-05-15 22:26 | NUR ---
GI MORE BOWEL PREP ORDERED. DIRECTOR OF STRATEGY & MOBILE EXPLAINED TO PT NEED TO TAKE MORE UNTIL BOWEL MOVEMENTS ARE CLEAR IN COLOUR. PT REFUSED. STATES "IM NOT GOING TO TAKE ANYMORE IM GOING HOME, I DONT CARE IF I DONT GET THE PROCEDURE." DIRECTOR OF STRATEGY & MOBILE PROVIDED EDUCATION, PT STILL REFUSED.
[2023-05-16] VITALS (15 sets, daily range): BP systolic 98–142; BP diastolic 56–92
--- NOTE | 2023-05-16 06:07 | NUR ---
SHIFT SUMMARY ALERT AND ORIENTED. INDEP IN ROOM. REFUSING CPAP, SPO2>95 ON RA. IN AFIB, BP STABLE SBP 115-130S. HAD GALLON OF BOWEL PREP. DR VILLALOBOS WAS PHONED DUE TO BOWEL MOVEMENTS REMAINING DARK BROWN LIQUID AT 22:00, ORDERED MORE BOWEL PREP UNTIL BM CLEAR, PT REFUSED TO TAKE. NO N/V. REMAINS AWAKE SITTING IN CHAIR WATCHING TV. CALL HERNANDES IN REACH. NO VOICED CONCERNS AT THIS TIME.
[2023-05-16] MEDS ORDERED: Lactated Ringer's 1,000 ML IV SCH (08:00)
[2023-05-16 09:10] LABS: International Normalized Ratio 1.3; Prothrombin Time Results 13.4 Sec (9.7-11.5)
--- NOTE | 2023-05-16 09:11 | NUR ---
PT TO DAY SURGERY FOR EGD AND COLONOSCOPY. PLAN OF CARE DISCUSSED.
[2023-05-16] MEDS ORDERED: propofoL 80 ML IV ONE (09:28)
[2023-05-16] MEDS ORDERED: Lidocaine HCl 4% 5 ML SDA INH ONE (09:35)
[2023-05-16] MEDS ORDERED: Lidocaine HCl 4% 5 ML SDA ONE (09:35)
--- NOTE | 2023-05-16 09:36 | NUR ---
CARE OF PT ASSUMED AT 0700. PT SLEEPING, AROUSES TO VOICE, ORIENTED X3. PT DENIES C/O PAIN, NAUSEA. PT NPO FOR EGD/COLONOSCOPY. SCOPE TEAM TOOK PT DOWN TO DAY SURGERY FOR PROCEDURE W ANESTHESIA AROUND 0930. VSS.
--- NOTE | 2023-05-16 09:49 | NUR ---
05/16/23 0949 Meghan Azevedo History, Chart, Medications and Allergies reviewed before start of procedure. 3-LEAD EKG REVIEWED WITH PHYSICIAN PRIOR TO START OF PROCEDURE. MONITOR INTACT WITH CONTINUOUS PULSE OXIMETRY, CONTINUOUS END TITAL CO2, AND INTERMITTENT BLOOD PRESSURE. O2 VIA POM 10L INTACT THROUGHOUT SEDATION/PROCEDURE. SEE ANESTHESIA NOTES FOR DETAILS. PT IS PCU STATUS, PROCEDURE DONE IN ENDO #1.
[2023-05-16] MEDS ORDERED: propofoL 20 ML IV ONE (10:24)
--- NOTE | 2023-05-16 11:22 | NUR ---
PT ARRIVED FROM PROCEDURE DROWSY AND CONFUSED. BP STABLE. AFIB W RATE AROUND 100. PROCEDURE REPORT RECEIVED FROM DAY SURGERY RN. PT'S DAUGHTER IS AT BEDSIDE. SKIN TEAR NOTED TO RIGHT WRIST, DRSG PLACED.
--- NOTE | 2023-05-16 13:43 | NUR ---
PT INITIALLY CONFUSED AND RESTLESS IMMEDIATELY AFTER PROCEDURE. PT THEN FELL ASLEEP AND APPEARED TO BE HYPOVENTILATING. ETCO2 PLACED. PT OCC. READING LOW AROUND 15, PT AWAKENED TO VOICE AND ABLE TO TAKE A DEEP BREATH. ETCO2 NOW AROUND 33 CONSISTANTLY. PT MORE AWAKE AND NO LONGER CONFUSED. DR ALCANTARA IN TO SEE PT, UPDATE GIVEN. NEPHROLOGY CONSULT MAY BE PLACED BY DR ALCANTARA.
--- NOTE | 2023-05-16 15:01 | NUR ---
PT SBA TO CHAIR. WIDE AWAKE, STEVE LIQUIDS.
[2023-05-16] MEDS ORDERED: Metoprolol Succinate 50 MG TABCR PO SCH (17:00)
[2023-05-16] MEDS ORDERED: Ferrous Sulfate 325 MG Tab PO SCH (17:00)
[2023-05-16] MEDS ORDERED: Phenylephrine HCl 100 MCG/ML-NS 10MLSYR (1MG/10ML) IV ONE (17:17)
[2023-05-16] MEDS ORDERED: Propofol 10mg/ml 20 ml Vial (Procedural) IV ONE (17:17)
--- NOTE | 2023-05-16 18:42 | NUR ---
PT UP IN CHAIR TOLERATING SOLIDS WATCHING THE SUPER-BOWL W/O COMPLAINTS. DR WIGGINS CONSULTED AND NOTIFIED. HE WILL SEE THE PATIENT TONIGHT OR TOMORROW AM.
--- NOTE | 2023-05-16 19:15 | NUR ---
ASSUMPTION OF CARE RECEIVED INTO CARE. REPORT GIVEN BY DAY RN. PT SITTING IN CHAIR WITH EYES CLOSED, WAKES TO VERBAL STIMULI. ORIENTED. ON TELE, IN AFIB HR 110S. PT COMFORTABLE. NO VOICED CONCERNS AT THIS TIME. CALL HERNANDES IN REACH. SEE SHIFT ASSESSMENT FOR FURTHER DETAILS.
[2023-05-17 00:02] VITALS: BP 116/67
[2023-05-17 04:11] LABS: Hemoglobin 7.7 g/dL (11.5-16.0); Mean Corpuscular HGB 32.1 pg (26.0-34.0); Mean Corpuscular HGB Conc 30.8 g/dL (31.5-36.5); Mean Corpuscular Volume 104 fL (80-100); Mean Platelet Volume 9.6 fL (9.1-12.4); Platelet Count 157 K/mm3 (150-400); RDW Coefficient Variation 22.2 % (11.7-14.2); RDW Standard Deviation 84.7 fL (35.1-46.3); White Blood Cell Count 8.91 K/mm3 (4.00-11.30)
[2023-05-17 04:24] VITALS: BP 95/54
[2023-05-17 04:29] LABS: Bun/Creatinine Ratio 29.2 (12.0-20.0); Calcium, Blood 8.8 mg/dL (8.5-10.1); Creatinine, Blood 2.81 mg/dL (0.40-1.00); Potassium, Blood 3.8 mmol/L (3.5-5.5)
--- NOTE | 2023-05-17 05:51 | NUR ---
SHIFT SUMMARY ALERT AND ORIENTED X3. NO PAIN. INDEP WITH MOBILIZING. SLEPT WELL THROUGHOUT NIGHT. USES CALL HERNANDES APPROPRIATELY. REMAINS IN AFIB HR 80-90S, SBP 100-120S. ON RA SPO2>94%. INDEP TO TOILET TO VOID, HOWEVER PUREWICK PLACED OVERNIGHT. REMAINS LYING IN BED EYES CLOSED, NO VOICED CONCERNS. STATES IS COMFORTABLE. CALL HERNANDES IN REACH.
[2023-05-17] MEDS ORDERED: Pantoprazole Sodium 20 MG Tab PO SCH (06:00)
[2023-05-17] MEDS ORDERED: Levothyroxine Sodium 0.175 MG TAB PO SCH (06:00)
--- NOTE | 2023-05-17 08:45 | NUR ---
ASSUMED CARE / DR ALCANTARA: REPORT RECEIVED FROM CHRISTINA OLSEN. ASSUMED CARE OF THIS PT AT APPROX 0700. ON ASSESSMENT, THE PT IS AWAKE, SITTING UP IN THE CHAIR. LS DIM IN BASES, PT ON RA W/ O2 SATS > 92%. MONITOR SHOWS AFIB W/ HR 70s, SLIGHT HYPOTENSION THIS AM W/ SBP 90s. PT HAS NO GI COMPLAINTS & IS TOLERATING PO INTAKE WELL. VOIDS URINE W/O DIFFICULTY, HAS SOME C/O STRESS/ URGENCY INCONTINENCE. REQUESTS THAT PUREWICK BE PLACED WHILE NAPPING. SKIN CONDITION OVERALL FRAGILE, ECCHYMOTIC. SMALL SKIN TEAR TO TOP OF RIGHT FOREARM/ WRIST. DR ALCANTARA AT BEDSIDE THIS AM TO EVAL PT. SHE WOULD LIKE DR Mcdonald TO SEE THE PT PRIOR TO DECIDING WHEN DISCHARGE SHOULD OCCUR. PHYSICAL & OCCUPATIONAL THERAPIES ALSO ORDERED. WILL CONTINUE TO MONITOR & UPDATE NEEDED.
[2023-05-17] MEDS ORDERED: Gabapentin 300 MG Cap PO SCH (09:00)
[2023-05-17] MEDS ORDERED: Allopurinol 100 MG Tab PO SCH (09:00)
[2023-05-17] MEDS ORDERED: Calcium Carbonate 500 MG Tab Chew PO SCH (09:00)
[2023-05-17] MEDS ORDERED: Ascorbic Acid 500 MG Tab PO SCH (09:00)
[2023-05-17] MEDS ORDERED: Biotin 5 MG Cap PO SCH (09:00)
[2023-05-17] MEDS ORDERED: Atorvastatin 40 MG Tab PO SCH (09:00)
[2023-05-17 09:03] VITALS: BP 96/61
[2023-05-17 12:42] VITALS: BP 113/77
[2023-05-17] MEDS ORDERED: Metoprolol Succinate 50 MG TABCR PO SCH (15:30)
--- NOTE | 2023-05-17 16:30 | NUR ---
DR Mcdonald: PROVIDER AT BEDSIDE FOR CONSULTATION OF THIS PT. HE WOULD LIKE TO DIURESE THE PT & HAS ORDERED URINE LABS TO BE COMPLETED WHEN THE PT VOIDS. IF THERE IS NOT ADEQUATE URINE OUTPUT AFTER DIURESIS, DIALYSIS WILL BE CONSIDERED.
[2023-05-17 16:48] VITALS: BP 118/72
[2023-05-17] MEDS ORDERED: Potassium Chloride 10 Meq Tablet SA PO SCH (17:00)
--- NOTE | 2023-05-17 17:36 | NUR ---
SHIFT SUMMARY: NO ACUTE CHANGES SINCE PRIOR UPDATES. PT REMAINS A&O TO ALL, IS PLEASANT & COOPERATIVE W/ CARE MEASURES, GENERALLY COMPLETING THEM INDEPENDENTLY IN ROOM W/ SETUP ASSIST PRN. LS CLEAR, DIM IN BASES. PT ON RA W/ O2 SATS > 94%. TELE MONITOR REMOVED AFTER SHOWER PT IS NOW MEDICAL STATUS. RATE CHECK PRIOR TO TOPROL XL ADMIN REMAINS IRREGULAR, APPROX 70-80 BPM. PT HAS NO GI COMPLAINTS, IS TOLERATING PO INTAKE WELL. NO BM OR FURTHER SIGNS OF GI BLEEDING NOTED. SKIN OVERALL ECCHYMOTIC, FRAGILE. Q2H REPOSITIONING TO MAINTAIN SKIN INTEGRITY COMPLETED BY PT W/ MIN ASSIST OR VERBAL REMINDERS. WILL CONTINUE TO MONITOR & REPORT OFF TO ONCOMING RN.
[2023-05-17] MEDS ORDERED: Epoetin Alfa-EPBX 10,000 Unit/ML 1ML Vial SC SCH (18:00)
[2023-05-17] MEDS ORDERED: Bumetanide 0.25 MG/ML 4ML ViaL IV SCH (18:00)
[2023-05-17] MEDS ORDERED: Metolazone 5 MG Tab PO SCH (18:00)
[2023-05-17 19:38] VITALS: BP 125/73
--- NOTE | 2023-05-17 20:34 | NUR ---
ASSUMPTION OF CARE BEDSIDE SHIFT REPORT RECEIVED FROM DAYSHIFT RN. PT RESTING IN BED, SLEEPING BUT AROUSABLE. ORIENTED X 4, PT ANSWERS QUESTIONS APPROPRIATELY, ABLE TO MAKE NEEDS KNOWN. PT MOVES ALL EXTREMITIES EQUALLY BILATERALLY. HR 80'S A FIB, MAP >65. PT ON RA, OXYGEN SATURATION >95%. PT DENIES CP OR SOB. ABDOMEN IS SOFT AND ROUND, PT STATES IT IS MILDLY TENDER TO PALPATION, NO NAUSEA OR VOMITING. PUREWICK IN PLACE. PIV TO RAC SL. BED IN LOWEST POSITION, CALL LIGHT WITHIN REACH, CARE CONTINUES.
[2023-05-17] MEDS ORDERED: Melatonin 5 MG Tablet PO PRN (22:45)
[2023-05-18 01:12] VITALS: BP 104/55
[2023-05-18 03:38] LABS: BASOPHILS ABSOLUTE AUTO 0.02 K/mm3 (0.00-0.23); BASOPHILS PERCENT AUTO 0 % (0-2); EOSINOPHILS ABSOLUTE AUTO 0.24 K/mm3 (0.00-0.68); EOSINOPHILS PERCENT AUTO 4 % (0-6); Hematocrit 25.1 % (33.0-51.0); Hemoglobin 7.4 g/dL (11.5-16.0); IMMATURE GRAN ABSOLUTE AUTO 0.03 K/mm3 (0.00-0.10); IMMATURE GRAN PERCENT AUTO 1 % (0-1); LYMPHOCYTES ABSOLUTE AUTO 0.75 K/mm3 (0.84-5.20); LYMPHOCYTES PERCENT AUTO 12 % (21-46); MONOCYTES ABSOLUTE AUTO 0.45 K/mm3 (0.16-1.47); MONOCYTES PERCENT AUTO 7 % (4-13); Mean Corpuscular HGB 31.2 pg (26.0-34.0); Mean Corpuscular HGB Conc 29.5 g/dL (31.5-36.5); Mean Corpuscular Volume 106 fL (80-100); Mean Platelet Volume 9.8 fL (9.1-12.4); NEUTROPHILS ABSOLUTE AUTO 4.83 K/mm3 (1.96-9.15); NEUTROPHILS PERCENT AUTO 76 % (41-73); Platelet Count 137 K/mm3 (150-400); RDW Coefficient Variation 21.4 % (11.7-14.2); RDW Standard Deviation 83.1 fL (35.1-46.3); RETICULOCYTE ABSOLUTE 0.1597 M/mm3 (0.0200-0.1100); RETICULOCYTE COUNT PERCENT 6.74 % (0.50-2.50); Red Blood Cell Count 2.37 M/mm3 (3.80-5.20); White Blood Cell Count 6.32 K/mm3 (4.00-11.30)
--- NOTE | 2023-05-18 04:13 | NUR ---
PT UPDATE PT OXYGEN DROPPED TO 87, PT WEARS CPAP AT HOME BUT DECLINED HOSPITAL CPAP. PT PLACED ON 2L VIA NC, OXYGEN SATURATION >95%
[2023-05-18 04:20] LABS: Albumin, Blood 3.1 g/dL (3.4-5.0); Anion Gap 6 mmol/L (6-16); Blood Urea Nitrogen 77 mg/dL (8-24); Bun/Creatinine Ratio 27.9 (12.0-20.0); CO2, Blood 25 mmol/L (21-32); Calcium, Blood 9.1 mg/dL (8.5-10.1); Chloride, Blood 104 mmol/L (98-108); Creatinine, Blood 2.76 mg/dL (0.40-1.00); Glomerular Filtration Rate 17 (60-); Glucose, Blood 118 mg/dL (70-99); Phosphorus, Blood 4.5 mg/dL (2.5-4.9); Potassium, Blood 3.6 mmol/L (3.5-5.5); Sodium, Blood 135 mmol/L (136-145)
--- NOTE | 2023-05-18 05:40 | NUR ---
SHIFT SUMMARY PT RESTING IN BED, SLEEPING BUT AROUSABLE. ORIENTED X4, PT ANSWERS QUESTIONS APPROPRIATELY, MOVES ALL EXTREMITIES EQUALLY BILATERALLY, AND IS ABLE TO MAKE NEEDS KNOWN. PT HAD TROUBLE SLEEPING THIS SHIFT, CALL PLACED TO DR. JAIMES, ORDER RECEIVED FOR MELATONIN, GIVEN WITH GOOD EFFECT. HR 70'S AFIB, MAP >65. PT PLACED ON 2L VIA NC DUE TO DESATTING WHILE SLEEPING, OXYGEN SATURATION SINCE HAS BEEN >95%. ABDOMEN SOFT AND ROUND, SLIGHTLY TENDER ON PALPATION, NO BM THIS SHIFT. PUREWICK IN PLACE DRAINING YELLOW URINE. PIV TO RAC SL. BED IN LOWEST POSITION, CALL LIGHT WIHTIN REACH. CARE CONTINUES.
[2023-05-18 09:00] VITALS: BP 111/47
[2023-05-18] MEDS ORDERED: Folic Acid 1 MG TAB PO SCH (09:00)
--- NOTE | 2023-05-18 09:00 | NUR ---
ASSUMED CARE / DR JONES: REPORT RECEIVED FROM CHRISTINA CAI. ASSUMED CARE OF THIS PT AT APPROX 0700. ON ASSESSMENT, THE PT IS AWAKE, A&O TO ALL. SHE IS AMBULATORY IN HER ROOM & CALLS FOR ASSISTANCE APPROPRIATELY PRN. LS DIM IN BASES, PT ON RA W/ O2 SATS > 95%. MED NO TELE STATUS. HR IRREGULAR W/ RADIAL PULSE 70s, HX AFIB. PT HAS NO GI COMPLAINTS, IS TOLERATING PO INTAKE WELL. NO SIGNS OF GI BLEEDING OR BMs. VOIDS URINE W/O DIFFICULTY, ATTENDS IN PLACE FOR SOME STRESS/ URGENCY INCONTINENCE. PT REQUESTS PUREWICK WHILE SLEEPING, HAS BEEN REMOVED THIS AM WHILE PT AWAKE & AMBULATORY. SKIN OVERALL ECCHYMOTIC, FRAGILE. SCATTERED BRUISING TO BUE, SKIN TEAR W/ FOAM DRESSING TO RIGHT FOREARM/ WRIST. SWELLING TO BLE 3+ W/ THICKENED BUMPY SKIN THAT PT STS IS "NORMAL" FOR HER. PROVIDER AT BEDSIDE THIS AM TO EVAL PT. SHE PLANS TO SPEAK W/ DR Mcdonald REGARDING POTENTIAL DISCHARGE HOME THIS AFTERNOON. NO OTHER CHANGES AT THIS TIME. WILL CONTINUE TO MONITOR & UPDATE NEEDED.
[2023-05-18] MEDS ORDERED: Bumetanide 10 MG in NS 60 ML IV SCH (11:50)
[2023-05-18 12:30] VITALS: BP 157/92
--- NOTE | 2023-05-18 13:00 | NUR ---
DR JONES UPDATE: CALL FROM PROVIDER AFTER SHE HAS SPOKEN W/ DR Mcdonald, CARPET INSTALLER HELPER. A BUMEX DRIP HAS BEEN ORDERED INSTEAD OF BUMEX IVP. HE WOULD LIKE TO SEE HER URINARY OUTPUT INCREASE PRIOR TO CONSIDERING DISCHARGE. SHE HAS BEEN CHANGED BACK TO PCU STATUS REGARDING BUMEX DRIP & ACUITY OF I&O MONITORING, ORDERS PLACED.
[2023-05-18 15:56] VITALS: BP 104/67
--- NOTE | 2023-05-18 16:30 | NUR ---
TRANSFER IN ICU: PT HAS TRANSFERRED TO ICU-01 R/T UNIT CENSUS. VSS. NO COMPLAINTS.
--- NOTE | 2023-05-18 17:42 | NUR ---
SHIFT SUMMARY: NO ACUTE CHANGES SINCE PRIOR UPDATES. PT REMAINS A&O, PLEASANT & COOPERATIVE. SHE CONTINUES TO BE AMBULATORY IN ROOM & CALLS FOR ASSISTANCE PRN. LS DIM IN BASES, PT ON RA W/ O2 SATS > 92%. HOME CPAP BROUGHT IN BY PT's DAUGHTER & SETUP BY RT SUMAN. MONITOR SHOWS AFIB W/ HR 70-80s, BP STABLE. 3+ EDEMA TO BLE APPEARS OVERALL UNCHANGED THIS AM ASSESSMENT, BUMEX DRIP INFUSING PER ORDERS. PT HAS NO GI COMPLAINTS & IS TOLERATING PO INTAKE WELL, NO BM THIS SHIFT. VOIDS URINE W/O DIFFICULTY USING TOILET, I&O MONITORING. SKIN CONDITION OVERALL FRAGILE, ECCHYMOTIC. Q2H REPOSITIONING TO MAINTAIN SKIN INTEGRITY. WILL CONTINUE TO MONITOR & REPORT OFF TO ONCOMING RN.
[2023-05-18 19:40] VITALS: BP 96/46
--- NOTE | 2023-05-18 20:01 | NUR ---
SPOKE TO DR ROMMEL WIGGINS ABOUT PT I&O MONITORING AND INABILITY FOR ACCURATE MEASUREMENTS DUT TO PT INCONTINENCE. MD STATED THAT HE HAD INSTRUCTED, I AM ASSUMING THE PRIOR SHIFT RN, TO MONITOR BY PT WEIGHT. I WAS NOT GIVEN THIS INFORMATION AND TOLD HIM THAT HE HAD NOT SPOKE TO ME ABOUT THIS HE ERRONEOUSLY THOUGHT HE HAD. I WILL RECORD PT WEIGHT AT THE APPROPRIATE TIME PER MD INSTRUCTION.
[2023-05-18 23:59] VITALS: BP 127/82
[2023-05-19 03:20] LABS: BASOPHILS ABSOLUTE AUTO 0.02 K/mm3 (0.00-0.23); BASOPHILS PERCENT AUTO 0 % (0-2); EOSINOPHILS ABSOLUTE AUTO 0.21 K/mm3 (0.00-0.68); EOSINOPHILS PERCENT AUTO 5 % (0-6); Hematocrit 25.4 % (33.0-51.0); Hemoglobin 7.7 g/dL (11.5-16.0); IMMATURE GRAN ABSOLUTE AUTO 0.01 K/mm3 (0.00-0.10); IMMATURE GRAN PERCENT AUTO 0 % (0-1); LYMPHOCYTES ABSOLUTE AUTO 0.59 K/mm3 (0.84-5.20); LYMPHOCYTES PERCENT AUTO 13 % (21-46); MONOCYTES ABSOLUTE AUTO 0.45 K/mm3 (0.16-1.47); MONOCYTES PERCENT AUTO 10 % (4-13); Mean Corpuscular HGB 31.8 pg (26.0-34.0); Mean Corpuscular HGB Conc 30.3 g/dL (31.5-36.5); Mean Corpuscular Volume 105 fL (80-100); Mean Platelet Volume 9.9 fL (9.1-12.4); NEUTROPHILS ABSOLUTE AUTO 3.36 K/mm3 (1.96-9.15); NEUTROPHILS PERCENT AUTO 73 % (41-73); Platelet Count 125 K/mm3 (150-400); RDW Coefficient Variation 20.7 % (11.7-14.2); Red Blood Cell Count 2.42 M/mm3 (3.80-5.20); White Blood Cell Count 4.64 K/mm3 (4.00-11.30)
[2023-05-19 03:45] LABS: Albumin, Blood 3.1 g/dL (3.4-5.0); Bilirubin, Total 1.1 mg/dL (0.1-1.0); Bun/Creatinine Ratio 27.4 (12.0-20.0); Calcium, Blood 9.1 mg/dL (8.5-10.1); Creatinine, Blood 2.66 mg/dL (0.40-1.00); Globulin, Blood 3.2 g/dL (2.2-4.0); Magnesium, Blood 2.5 mg/dL (1.6-2.4); Phosphorus, Blood 4.6 mg/dL (2.5-4.9); Potassium, Blood 3.4 mmol/L (3.5-5.5); Total Protein, Blood 6.3 g/dL (6.4-8.2)
[2023-05-19 04:22] VITALS: BP 107/72
--- NOTE | 2023-05-19 06:17 | NUR ---
SHIFT SUMMERY PT IS ALERT AND ORIENTED X4, AMBULATORY W/MIN ASSISTANCE TO COMMODE. SHE HAS A BUMEX DRIP AT 5ML/HR THAT HAS BEEN INFUSING THROUGHOUT THE NIGHT. SHE HAS BEEN AFIB ON THE MULTIMEDIA AUTHOR W/BP WNL. NO SHORTNESS OF BREATH, ON ROOM AIR WHILE AWAKE. PT IS NON COMPLIANT W/CPAP BUT IT IS AT BEDSIDE. SHE HAS HAD NO COMPLAINTS OR DISTRESS OVERNIGHT.
[2023-05-19 07:14] VITALS: BP 92/56
--- NOTE | 2023-05-19 07:36 | NUR ---
CARE OF PT ASSUMED AT 0700. BEDSIDE REPORT TAKEN. PT AWAKE AND ALERT, DENIES C/O PAIN, STATES SHE DID NOT SLEEP MUCH LAST NIGHT. PT SBA TO TOILET WITH 400CC VOID. PT ON BUMEX GTT AT 0.5MG/HR. LUNGS CLEAR. PT HYPOTENSIVE W MAP >65, PT ASYMPTOMATIC, DENIES DIZZINESS WHEN UP. PT AFIB W CONTROLLED RATE 70-80'S.
[2023-05-19 11:07] VITALS: BP 112/60
--- NOTE | 2023-05-19 11:33 | NUR ---
PT C/O NAUSEA WHICH WAS QUICKLY RELIEVED WITH ZOFRAN. PT RESTING NOW W/O COMPLAINTS.
[2023-05-19 16:20] VITALS: BP 110/62
[2023-05-19 18:10] LABS: HEPATITIS B SURFACE ANTIGEN Negative (Negative)
--- NOTE | 2023-05-19 18:41 | NUR ---
PT OOB TO CHAIR SEVERAL TIMES TODAY. 1200 U/O PLUS 2 UNMEASURED VOIDS. BUMEX AT 0.5MG/HR T/O SHIFT. DR WIGGINS AT BEDSIDE NOW. PT C/O PAIN TO POSTERIOR RIBS RIGHT SIDE, SOME BRUISING NOTED. PT STATES SHE FELL AT HOME PRIOR TO ADMIT. PT DECLINED MEDICATIONS FOR PAIN, USING HEAT FOR COMFORT. PT DECLINED BEDBATH D/T FATIGUE.
--- NOTE | 2023-05-19 19:05 | NUR ---
ASSUMPTION OF CARE RECEIVED INTO CARE. REPORT GIVE BY DAY RN WARD. PT AWAKE LYING IN BED WATCHING TV. RANG CALL HERNANDES FOR ASSISTANCE TO TOILET. ON TELE IN AFIB, ON RA SPO2 100%. BUMEX INFUSION CHECKED WITH EMAR. ASSISTED BACK TO BED. NO VOICED CONCERNS AT THIS TIME. CALL HERNANDES IN REACH. SEE SHIFT ASSESSMENT FOR FURTHER DETAILS.
[2023-05-19 19:20] VITALS: BP 107/66
[2023-05-19] MEDS ORDERED: Apixaban 5 MG Tab PO SCH (21:00)
[2023-05-19] MEDS ORDERED: Potassium Chloride 20 MEQ TabCR PO ONE (21:15)
[2023-05-19 22:57] VITALS: BP 94/58
[2023-05-20 03:30] LABS: BASOPHILS ABSOLUTE AUTO 0.04 K/mm3 (0.00-0.23); BASOPHILS PERCENT AUTO 1 % (0-2); EOSINOPHILS ABSOLUTE AUTO 0.23 K/mm3 (0.00-0.68); EOSINOPHILS PERCENT AUTO 5 % (0-6); Hematocrit 24.2 % (33.0-51.0); Hemoglobin 7.4 g/dL (11.5-16.0); IMMATURE GRAN ABSOLUTE AUTO 0.01 K/mm3 (0.00-0.10); IMMATURE GRAN PERCENT AUTO 0 % (0-1); LYMPHOCYTES ABSOLUTE AUTO 0.65 K/mm3 (0.84-5.20); LYMPHOCYTES PERCENT AUTO 13 % (21-46); MONOCYTES ABSOLUTE AUTO 0.43 K/mm3 (0.16-1.47); MONOCYTES PERCENT AUTO 9 % (4-13); Mean Corpuscular HGB 31.4 pg (26.0-34.0); Mean Corpuscular HGB Conc 30.6 g/dL (31.5-36.5); Mean Corpuscular Volume 103 fL (80-100); Mean Platelet Volume 10.3 fL (9.1-12.4); NEUTROPHILS ABSOLUTE AUTO 3.69 K/mm3 (1.96-9.15); NEUTROPHILS PERCENT AUTO 73 % (41-73); Platelet Count 143 K/mm3 (150-400); RDW Coefficient Variation 19.8 % (11.7-14.2); RDW Standard Deviation 74.7 fL (35.1-46.3); Red Blood Cell Count 2.36 M/mm3 (3.80-5.20); White Blood Cell Count 5.05 K/mm3 (4.00-11.30)
[2023-05-20 03:46] VITALS: BP 107/47
[2023-05-20 04:37] LABS: Bun/Creatinine Ratio 27.1 (12.0-20.0); Calcium, Blood 9.6 mg/dL (8.5-10.1); Creatinine, Blood 2.62 mg/dL (0.40-1.00); Globulin, Blood 3.1 g/dL (2.2-4.0); Magnesium, Blood 2.3 mg/dL (1.6-2.4); Phosphorus, Blood 4.4 mg/dL (2.5-4.9); Potassium, Blood 3.7 mmol/L (3.5-5.5); Total Protein, Blood 6.1 g/dL (6.4-8.2)
--- NOTE | 2023-05-20 05:58 | NUR ---
SHIFT SUMMARY ALERT AND ORIENTED. RANG CALL HERNANDES EVERY TIME NEEDED TO USE TOILET. INDEP WITH MOBILIZING TO BATHROOM. DID NOT GET MUCH SLEEP WAS UP AND DOWN CONSTANTLY TO VOID. REMAINS IN AFIB HR 70-90S, BP STABLE. CPAP OVERNIGHT. REMAINS ON BUMEX AT 5ML/HR. NO VOICED CONCERNS AT THIS TIME, CALL HERNANDES IN REACH. REMAINS IN BED WITH CPAP ON, EYES CLOSED.
[2023-05-20 07:35] VITALS: BP 117/62
--- NOTE | 2023-05-20 08:14 | NUR ---
ASSUMED CARE BEDSIDE REPORT FROM PRETTY VASQUEZ AT 0700. PT RESTING IN BED. CALLS FOR ASSISTANCE TO BATHROOM. STANDBY ASSIST FOR LINE MANAGEMENT. A&OX 4. FOLLOWS COMMANDS. ANSWERS QUESTIONS APPROPRIATELY. DENIES NEEDS OR COMPLAINTS. LUNGS CLEAR IN UPPER LOBES, DIM IN BASES. SPEAKING IN FULL SENTENCES. PT P/W/D. ON RA, O2 SATS >96%. AFIB ON MONITOR, RATE 80-90'S. BP STABLE. BLE 3+ EDEMA. PT STATES THEY ARE SORE, SKIN DISCOLORED AND THICK. BUMEX GTT INFUSING AT 0.5 MG/HR. PT UP TO CHAIR FOR BREAKFAST. CALL LIGHT IN REACH. WILL CONTINUE PLAN OF CARE.
[2023-05-20] MEDS ORDERED: Potassium Chloride 10 Meq Tablet SA PO SCH (08:30)
[2023-05-20 11:56] VITALS: BP 110/55
--- NOTE | 2023-05-20 14:50 | NUR ---
SHIFT SUMMARY/TRANSFER TO PCU NO ACUTE CHANGES THIS SHIFT. BUMEX GTT CONTINUES AT 0.5 MG/HR. PT UP TO BATHROOM APPROX q1-2 HR. STANDBY ASSISTANCE. LUNGS CLEAR. ON RA. AFIB, RATE 80'S. BP STABLE. A&O X 4. GOOD APPETITE. FAMILY AT BEDSIDE. REPORT TO EDIN VASQUEZ. PT TRANSFERRED TO PCU 1 c ALL BELONGINGS.
[2023-05-20 14:52] VITALS: BP 109/66
--- NOTE | 2023-05-20 17:44 | NUR ---
CARE ASSUMPTION/SHIFT SUMMARY PT ARRIVED TO PCU FROM ICU THIS AFTERNOON. PT AMBULATED FROM ICU BED TO PCU BED INDEPENDENTLY WITH HELP FOR LINE MANAGEMENT. PT A&OX4. SP02>90% ON RA. TELEMETRY SHOWS AFIB, HR 70'S-80'S. PT DENIES PAIN. UP TO BSC TO VOID. BUMEX GTT INFUSING PER EMAR. MD MAGANA IN ROOM THIS EVENING TO ASSESS. MD MAGANA WITH ORDERS TO STOP BUMEX GTT ONCE CURRENT INFUSING BAG IS COMPLETE. FAMILY IN ROOM. PT SITTING IN BED EATING DINNER. CALL LIGHT IN REACH.
[2023-05-20 20:05] VITALS: BP 118/66
[2023-05-20] MEDS ORDERED: Bumetanide 0.25 MG/ML 10ML Vial IV SCH (21:15)
[2023-05-20 23:57] VITALS: BP 102/59
[2023-05-21] VITALS (7 sets, daily range): BP systolic 85–126; BP diastolic 38–79
[2023-05-21 03:34] LABS: Hematocrit 23.4 % (33.0-51.0); Hemoglobin 7.1 g/dL (11.5-16.0); Mean Corpuscular HGB 31.1 pg (26.0-34.0); Mean Corpuscular HGB Conc 30.3 g/dL (31.5-36.5); Mean Corpuscular Volume 103 fL (80-100); Mean Platelet Volume 10.1 fL (9.1-12.4); Platelet Count 158 K/mm3 (150-400); RDW Coefficient Variation 19.5 % (11.7-14.2); RDW Standard Deviation 73.8 fL (35.1-46.3); Red Blood Cell Count 2.28 M/mm3 (3.80-5.20); White Blood Cell Count 6.21 K/mm3 (4.00-11.30)
--- NOTE | 2023-05-21 03:49 | NUR ---
SHIFT SUMMARY NO ACUTE CHANGES OVERNIGHT. VSS. AXO4. REMAINS AFIB, CONTROLLED RATE. MILD HYPOTENSION AT TIMES. PT DIURESED WELL, BUMEX GTT NOW OFF PER ORDERS OF ROSALIE, WILL START IV PUSHES THIS AM VS CONTINUOUS GTT. RA/CPAP WITH CLEAR LUNG SOUNDS. PT HAS BEEN UP TO BSC MANY TIMES THIS SHIFT, NO INCIDENT. POLST SITTING AT FRONT OF CHART, REQUIRES PHYSICIAN SIGNATURE. OTHERWISE, PT RESTING. COOPERATIVE WITH CARE. BED IN LOW POSITIION.
[2023-05-21 03:57] LABS: Bun/Creatinine Ratio 28.8 (12.0-20.0); Creatinine, Blood 2.74 mg/dL (0.40-1.00); Magnesium, Blood 2.1 mg/dL (1.6-2.4); Potassium, Blood 3.8 mmol/L (3.5-5.5)
[2023-05-21] MEDS ORDERED: Bumetanide 0.25 MG/ML 4ML ViaL IV SCH (09:00)
--- NOTE | 2023-05-21 09:13 | NUR ---
DIURETICS WERE HELD THIS AM AND MAPs WERE LOW, MAPs RANGED FROM 50s-60s.
--- NOTE | 2023-05-21 11:39 | NUR ---
PT IS A/O X4, ANSWERING QUESTIONS APPROPRIATELY IN FULL SENTENCES. PT IS UP WALKING IN ROOM, ABLE TO TRANSFER TO BEDSIDE COMMODE WITHOUT ISSUE. SHE REPORTS THAT SHE NEEDS A GREAT DEAL OF ASSISTANCE WITH ADLs, ALSO THAT SHE IS NOT ABLE TO COVER SELF WITH BLANKETS WHILE IN BED, SHE IS ABLE TO AMBULATE AND REPOSITION SELF IN BED WITHOUT ASSISTANCE, AND GET TO COMMODE ALSO UNASSISTED. SHE HAS BEEN MADE MEDICAL STATUS WITH TELE. SHE DENIES CP AND SOB. SHE IS ON ROOM AIR WITH SPO2 >94%. SHE DOES SLEEP WITH CPAP ON DURING THE NIGHT AND ALL NAPS. PT DID HAVE SOFT PRESSURES THIS AM, IT IS NOTED THAT SHE IS NEGATIVE 4,175ml FLUID OF THE TIME OF THIS NOTE, DIURECTICS AND BETA DANIEL WERE HELD THIS AM BECAUSE OF MAPs THAT RANGED FROM 53-62, SHE WAS ASYMTPOMATIC WITH THESE PRESSURES. SHE HAS TOO NUMEROUS TO MENTION ABRASIONS T/O HER BODY. SHE HAS A SKIN TEAR THAT IS DRESSED TO RFA. LOWER LEGS HAD BEEN REPORTED BY NOC SHIFT 3+ PITTING EDEMA, THE BLE APPEAR TO HAVE EDMEA BUT THE SKIN IS HARDENED WITH BUMPY I WAS UNABLE TO COMPRESS SKIN TO NOTE THE DEGREE OF EDEMA. FMAILY IS ROOM REPORT THAT THEY WOULD NOT LIKE HER TO BE WEIGHED WITH THE BED THEY HAVE ASKED THAT SHE ONLY HAVE STANDING WEIGHTS AND ASK THAT THEY BE CHARTED ON THE BOARD IN THE ROOM AT ALL TIMES SO THAT THEY CAN MONITOR HER WEIGHTS.
--- NOTE | 2023-05-21 17:18 | NUR ---
REPORT TO DOMENICO VASQUEZ ON MEDICAL.
--- NOTE | 2023-05-21 19:26 | NUR ---
SHIFT SUMMARY RECEIVED REPORT FROM [employer] PROCESSING PLANNER & RECEIVED PT AT 1730 VIA BED TRANSFER. IS A&O X 4. PLEASANT & COOPERATIVE WITH ALL CARE. REPORT GIVEN TO [facility] NURSE AT 1900.
[2023-05-21] MEDS ORDERED: Metolazone 5 MG Tab PO SCH (19:30)
--- NOTE | 2023-05-21 21:00 | NUR ---
AT AROUND 2044 THIS BUSINESS OPERATIONS SPECIALIST FOUND A HEATING PAD IN PATIENTS BED. EDUCATED PATIENT ON WHY WE CANT HAVE A HEATING PAD IN THE HOSPITAL, ALONG WITH IGNITION RISKS. REPLACED WITH K-PAD FOR PATIENTS COMFORT. MADE SURE THE HEATING PAD GOT UNPLUGGED FROM THE WALL AND PUT UP. ALERTED PATIENTS RN, AND IS ANALYST. CALL LIGHT IS WITHIN PATIENTS REACH.
[2023-05-22 04:46] VITALS: BP 106/51
[2023-05-22 04:53] LABS: Hematocrit 22.3 % (33.0-51.0); Hemoglobin 6.9 g/dL (11.5-16.0)
[2023-05-22 05:09] LABS: Albumin, Blood 3.1 g/dL (3.4-5.0); Anion Gap 6 mmol/L (6-16); Blood Urea Nitrogen 85 mg/dL (8-24); Bun/Creatinine Ratio 31.4 (12.0-20.0); CO2, Blood 32 mmol/L (21-32); Calcium, Blood 10.3 mg/dL (8.5-10.1); Chloride, Blood 97 mmol/L (98-108); Creatinine, Blood 2.71 mg/dL (0.40-1.00); Glomerular Filtration Rate 17 (60-); Glucose, Blood 102 mg/dL (70-99); Magnesium, Blood 2.1 mg/dL (1.6-2.4); Phosphorus, Blood 3.8 mg/dL (2.5-4.9); Potassium, Blood 3.4 mmol/L (3.5-5.5); Sodium, Blood 135 mmol/L (136-145)
--- NOTE | 2023-05-22 06:27 | NUR ---
SHIFT SUMMARY: PT IS ADMITTED FOR GI BLEED AND IS A FULL CODE. IS ALERT AND ABLE TO MAKE NEEDS KNOWN. ADLs HAVE BEEN STANDBY THROUGH OUT SHIFT. DENIES PAIN OR DISCOMFORT WHEN ASKED. TIFFANIE HAS REPORTED AN ST ELEVATION OFF AND ON BUT PT HAS NOT REPORTED SYMPTOMS. ORDERED 1 UNIT OF WHOLE BLOOD THIS AM FOR LOW H&H.
[2023-05-22 07:15] VITALS: BP 105/81
[2023-05-22] MEDS ORDERED: Torsemide 20 MG TAB PO SCH (09:00)
[2023-05-22] MEDS ORDERED: Potassium Chloride 10 Meq Tablet SA PO SCH (09:00)
[2023-05-22] MEDS ORDERED: Sod Ferric Gluc Complx/Sucrose 125 MG in NS 100 ML IV SCH (09:00)
[2023-05-22] MEDS ORDERED: PANT20 PO (11:09)
[2023-05-22] MEDS ORDERED: METO5 PO (11:12)
--- NOTE | 2023-05-22 13:28 | NUR ---
1230- PATIENT DISCHARGED HOME, DAUGHTER TRANSPORTING, DISCAHRGE INSTRUCTIONS TO PATIENT AND DAUGHTER, DAUGHTER STATED UNDERSTANDING AND DENIED FURTHER QUESTIONS. PATIENT NEEDS REINFORCEMENT OF DISCAHRGE INSTRUCTIONS, PATIENT STATED SHE UNDERSTOOD DISCHARGE INSTRUCTIONS AND DENIED FURTHER QUESTIONS.
== END 2023-05-22 12:20 | disposition home or self-care (01) | DRG 393 ==
LOC: ER 16:52 → ICUE 23:08 → PCU 23:08 → ICUE 05-14 01:08 → PCU 05-20 14:58 → MEDS 05-21 17:48
PROVIDERS: Emergency Medicine; Hospitalist; Internal Medicine; Internal Medicine Gastroenterology; Physician Assistant; Student in an Organized Health Care Education/Training Program; ADMIT Internal Medicine
PROC: 30233N1 Transfusion of Nonautologous Red Blood Cells into Peripheral Vein, Percutaneous Approach (ICD-10-PCS; principal; 2023-05-13)
PROC: 0DBH8ZZ Excision of Cecum, Via Natural or Artificial Opening Endoscopic (ICD-10-PCS; 2023-05-16 10:15)
PROC: 0DBL8ZZ Excision of Transverse Colon, Via Natural or Artificial Opening Endoscopic (ICD-10-PCS; 2023-05-16 10:15)
PROC: 0DJ08ZZ Inspection of Upper Intestinal Tract, Via Natural or Artificial Opening Endoscopic (ICD-10-PCS; 2023-05-16 10:15)
DX: D12.0 Benign neoplasm of cecum (principal); I50.33 Acute on chronic diastolic (congestive) heart failure; K29.41 Chronic atrophic gastritis with bleeding; K57.31 Diverticulosis of large intestine without perforation or abscess with bleeding; K55.21 Angiodysplasia of colon with hemorrhage; D62 Acute posthemorrhagic anemia; I13.0 Hypertensive heart and chronic kidney disease with heart failure and stage 1 through stage 4 chronic kidney disease, or unspecified chronic kidney disease; E87.1 Hypo-osmolality and hyponatremia; N18.4 Chronic kidney disease, stage 4 (severe); N17.9 Acute kidney failure, unspecified; Z68.42 Body mass index [BMI] 45.0-49.9, adult; N30.00 Acute cystitis without hematuria; I48.19 Other persistent atrial fibrillation; K64.8 Other hemorrhoids; D50.9 Iron deficiency anemia, unspecified; G47.33 Obstructive sleep apnea (adult) (pediatric); D12.5 Benign neoplasm of sigmoid colon; M10.9 Gout, unspecified; E03.9 Hypothyroidism, unspecified; G89.4 Chronic pain syndrome; E87.6 Hypokalemia; F41.9 Anxiety disorder, unspecified; Z90.710 Acquired absence of both cervix and uterus; K63.5 Polyp of colon; Z98.890 Other specified postprocedural states; Z87.891 Personal history of nicotine dependence; F10.90 Alcohol use, unspecified, uncomplicated; Z79.01 Long term (current) use of anticoagulants; Z95.2 Presence of prosthetic heart valve; Z88.2 Allergy status to sulfonamides; Z79.899 Other long term (current) drug therapy; Z79.890 Hormone replacement therapy; E66.9 Obesity, unspecified; E78.5 Hyperlipidemia, unspecified; B96.20 Unspecified Escherichia coli [E. coli] as the cause of diseases classified elsewhere; E83.52 Hypercalcemia; Z11.52 Encounter for screening for COVID-19; T45.515A Adverse effect of anticoagulants, initial encounter
CPT/HCPCS: 0241U; 36415; 36430; 71046; 80048; 80053; 80069; 82570; 83735; 83880; 84100; 84156; 84484; 85014; 85018; 85025; 85027; 85045; 85610; 86850; 86900; 86901; 86923; 87340; 88305; 93005; 93010; 93306; 94660; 94762; 96361; 96374; 97116; 97162; 97165; 97530; 99285-25; A9270; C9113; J2001; J2371; J2405; J2704; J2916; J7030; J7050; J7120; P9016; Q5106